=== PATIENT | male | born 1985 | race Caucasian/White ===

== ENCOUNTER 2016-11-08 14:04 | Emergency (ER) | payer OTHER ==
[2016-11-08 14:22] VITALS: BP 150/77; PULSE 53; RESP 18
[2016-11-08 14:33] VITALS: TEMP 98.9
--- NOTE | 2016-11-08 14:50 | ED ---
ENT HPI - General Chief complaint: Dental/Oral Stated complaint: Dental Pain Time Seen by Provider: 11/08/16 14:23 Source: patient, RN notes reviewed Mode of arrival: ambulatory Limitations: no limitations - History of Present Illness Initial comments: 31-year-old male presents to the emergency Department chief complaint of right- sided dental pain. Patient states that it's the last 2 days. Patient admits to history of dental problems. Patient states any difficulty opening closing the mouth. Patient denies any pain radiates the neck. Patient denies any nausea vomiting fever chills with this. Patient states he was concerned due to his symptoms he thought that he should be evaluated.Patient denies any recent fever, chills, shortness of breath, chest pain, back pain, abdominal pain, nausea vomiting, numbness or tingling, dysuria or hematuria, constipation or diarrhea, headaches or visual changes, or any other current symptoms. - Related Data Home Medications Medication Instructions Recorded Confirmed No Known Home Medications [No 11/08/16 11/08/16 Known Home Medications] Allergies Allergy/AdvReac Type Severity Reaction Status Date / Time No Known Allergies Allergy Verified 11/08/16 14:22 Review of Systems ROS Statement: Those systems with pertinent positive or pertinent negative responses have been documented in the HPI. ROS Other: All systems not noted in ROS Statement are negative. Past Medical History Past Medical History: No Reported History History of Any Multi-Drug Resistant Organisms: None Reported Past Surgical History: Orthopedic Surgery Past Psychological History: No Psychological Hx Reported Smoking Status: Never smoker Past Alcohol Use History: Occasional Past Drug Use History: Marijuana General Exam Limitations: no limitations General appearance: alert, in no apparent distress Head exam: Present: atraumatic, normocephalic, normal inspection ENT exam: Present: normal exam, mucous membranes moist, other (Diffuse dental caries, no dental abscess at this time visualized.) Neck exam: Present: normal inspection. Absent: tenderness, meningismus, lymphadenopathy Respiratory exam: Present: normal lung sounds bilaterally. Absent: respiratory distress, wheezes, rales, rhonchi, stridor Cardiovascular Exam: Present: regular rate, normal rhythm, normal heart sounds. Absent: systolic murmur, diastolic murmur, rubs, gallop, clicks Neurological exam: Present: alert, oriented X3 Psychiatric exam: Present: normal affect, normal mood Skin exam: Present: warm, dry, intact, normal color. Absent: rash Course Vital Signs 11/08/16 11/08/16 14:20 14:29 Temperature 99.3 F 98.9 F Pulse Rate 53 L Respiratory 18 Rate Blood Pressure 150/77 O2 Sat by Pulse 99 Oximetry Medical Decision Making - Medical Decision Making 31-year-old male presents for right-sided dental pain. At this time the patient does appear to have dental caries. This time we discussed outpatient antibiotics for his symptoms. We did discuss follow-up with the dentist and return parameters. Patient stated that he understood. Plan. He will be discharged. Disposition Clinical Impression: Dental caries Disposition: HOME SELF-CARE Condition: Stable Instructions: Dental Caries (ED) Additional Instructions: Please use medication as discussed. Please follow up with family doctor if symptoms have not improved over the next two days. Please return to the emergency room if your symptoms increase or worsen or for any other concerns. [facility] [id number] [address] [phone] (existing clients only) For new clients: [phone] 1st consult: $50 (includes Xrays) Usually 30% less then private dentist for visits after. [employer] Have to pay $50 for Xrays anmd rest is covered. [phone] Referrals: Gerri Cline MD [REFERRING] - 1-2 days Time of Disposition: 14:49
== END 2016-11-08 15:00 | disposition home or self-care (01) ==
LOC: EC 14:04
DX: K02.9 Dental caries, unspecified (principal)
CPT/HCPCS: 99282

== ENCOUNTER 2018-03-18 09:18 | Emergency (ER) | payer BC ==
[2018-03-18 09:21] VITALS: TEMP 98
--- NOTE | 2018-03-18 10:00 | XR ---
EXAMINATION TYPE: XR shoulder complete LT DATE OF EXAM: 03/18/2018 CLINICAL HISTORY: pain COMPARISON: NONE TECHNIQUE: Three views of the left shoulder are obtained. FINDINGS: There is no acute fracture/dislocation evident. The acromioclavicular and glenohumeral kath int spaces appear within normal limits. The visualized ribs are intact and unremarkable. Changes of rotator cuff repair. IMPRESSION: 1. There is no acute fracture or dislocation. ICD 10 NO FRACTURE, INITIAL EVALUATION
--- NOTE | 2018-03-18 10:01 | ED ---
Upper Extremity HPI - General Chief Complaint: Extremity Injury, Upper Stated Complaint: Lt Shoulder Injury Time Seen by Provider: 03/18/18 09:23 Source: patient, RN notes reviewed Mode of arrival: ambulatory Limitations: no limitations - History of Present Illness Initial Comments: 32-year-old male presents emergency Department chief complaint of left arm pain. Patient states she's had surgery when he was under for rotator cuff injury. Patient states that he has a large scar and he believes he has some tacking done. Patient states that he has been waking up in he middle of the night with numbness and tingling in his arm he states that he wakes up he moves it goes away. Patient states it's more diffuse rather than just in his hand. Denies any associated weakness. He states she's has pain especially shoulder height movement. Patient states that he had no new trauma denies any chest pain or shortness of breath. - Related Data Previous Rx's Medication Instructions Recorded Penicillin V Potassium [Pen Vee K] 500 mg PO TID #40 tab 11/08/16 predniSONE 50 mg PO DAILY #5 tab 03/18/18 Allergies Allergy/AdvReac Type Severity Reaction Status Date / Time No Known Allergies Allergy Verified 03/18/18 09:21 Review of Systems ROS Statement: Those systems with pertinent positive or pertinent negative responses have been documented in the HPI. ROS Other: All systems not noted in ROS Statement are negative. Past Medical History Past Medical History: No Reported History History of Any Multi-Drug Resistant Organisms: None Reported Past Surgical History: Orthopedic Surgery Past Psychological History: No Psychological Hx Reported Smoking Status: Never smoker Past Alcohol Use History: Occasional Past Drug Use History: Marijuana General Exam Limitations: no limitations General appearance: alert, in no apparent distress Head exam: Present: atraumatic, normocephalic, normal inspection Respiratory exam: Present: normal lung sounds bilaterally. Absent: respiratory distress, wheezes, rales, rhonchi, stridor Cardiovascular Exam: Present: regular rate, normal rhythm, normal heart sounds. Absent: systolic murmur, diastolic murmur, rubs, gallop, clicks Extremities exam: Present: other (Left shoulder there is anterior scar noted well healed, patient has pain above 90. [employer] Consultant strength is equal bilateral, neurovascular intact with radial pulses equal bilaterally there is no focal tenderness with palpation no erythema no warmth) Neurological exam: Present: alert, oriented X3, CN II-XII intact, reflexes normal. Absent: motor sensory deficit Course Vital Signs 03/18/18 09:18 Temperature 98.0 F Pulse Rate 68 Respiratory 16 Rate Blood Pressure 138/85 O2 Sat by Pulse 97 Oximetry Medical Decision Making - Medical Decision Making 32-year-old male presents emergency Department chief complaint of left shoulder pain. He's been waking up with intermittent paresthesias. Patient symptoms do resolve. He may have some nerve impingement. Patient will be discharged follow -up with orthopedics patient may have some underlying tendinitis. Disposition Clinical Impression: Left shoulder tendinitis, Paresthesia of left upper extremity Disposition: HOME SELF-CARE Condition: Stable Instructions: Rotator Cuff Tendinitis (ED) Additional Instructions: Please return to the Emergency Department if symptoms worsen or any other concerns. Prescriptions: predniSONE 50 mg PO DAILY #5 tab Is patient prescribed a controlled substance at d/c from ED?: No Referrals: None,Stated [Primary Care Provider] - 1-2 days Lu Quezada MD [STAFF PHYSICIAN] - 1-2 days Mitesh Murillo MD [STAFF PHYSICIAN] - 1-2 days Time of Disposition: 10:07
[2018-03-18] MEDS ORDERED: ACET/COD 300 MG/30 MG STARTER PACK 6 TAB BTL PO STA (10:06)
[2018-03-18 10:26] VITALS: BP 135/76; PULSE 77; RESP 18
== END 2018-03-18 10:26 | disposition home or self-care (01) ==
LOC: EC 09:18
DX: M75.92 Shoulder lesion, unspecified, left shoulder (principal); R20.2 Paresthesia of skin
CPT/HCPCS: 99283

== ENCOUNTER → 2018-04-07 | Outpatient (CLI) | payer BC | LOC: RADMRIMAIN 10:13 | PROVIDERS: ATTEND Internal Medicine | DX: Z53.9 Procedure and treatment not carried out, unspecified reason (principal) ==

== ENCOUNTER 2019-11-08 02:40 | Observation (INO) | payer BC, OTHER ==
[2019-11-08] MEDS ORDERED: MORPHINE SULFATE 4 MG/ML SYRINGE IV STA ×2 (03:11→05:20)
[2019-11-08] MEDS ORDERED: KETOROLAC 30 MG/ML 1 ML VIAL IVP STA (03:11)
[2019-11-08 03:54] LABS: Basophils % (A) 0 %; Eosinophils # (A) 0.3 k/uL (0-0.7); Eosinophils % (A) 3 %; HCT 44.9 % (39.0-53.0); HGB 14.9 gm/dL (13.0-17.5); Lymphocytes # (A) 2.8 k/uL (1.0-4.8); Lymphocytes % (A) 29 %; MCH 32.2 pg (25.0-35.0); MCHC 33.3 g/dL (31.0-37.0); MCV 96.8 fL (80.0-100.0); Mean Platelet Volume 6.9; Monocytes # (A) 0.5 k/uL (0-1.0); Monocytes % (A) 6 %; Neutrophils # (A) 5.8 k/uL (1.3-7.7); Neutrophils % (A) 60 %; Platelet Count 272 k/uL (150-450); RBC 4.64 m/uL (4.30-5.90); RDW 12.7 % (11.5-15.5); WBC 9.6 k/uL (3.8-10.6)
[2019-11-08 04:01] LABS: ALT 47 U/L (4-49); AST 96 U/L (17-59); African American GFR (CKD) >90 (>60 ml/min/1.73 sqM); Albumin 3.4 g/dL (3.5-5.0); Alkaline Phosphatase 52 U/L (38-126); Anion Gap 6 mmol/L; Blood Urea Nitrogen 16 mg/dL (9-20); C Reactive Protein 11.5 mg/L (<10.0); Calcium 8.6 mg/dL (8.4-10.2); Carbon Dioxide 26 mmol/L (22-30); Chloride 104 mmol/L (98-107); Glucose 91 mg/dL (74-99); Non-African American GFR(CKD) >90 (>60 ml/min/1.73 sqM); Potassium 4.3 mmol/L (3.5-5.1); Sodium 136 mmol/L (137-145); Total Bilirubin 0.4 mg/dL (0.2-1.3); Total Protein 5.5 g/dL (6.3-8.2)
[2019-11-08 04:25] LABS: Creatine Kinase MB 5.8 ng/mL (0.0-2.4); Troponin I <0.012 ng/mL (0.000-0.034)
[2019-11-08] MEDS ORDERED: NITROGLYCERIN SL TABS 0.4 MG TAB SUBLINGUAL STA (05:20)
[2019-11-08] MEDS ORDERED: ASPIRIN 81 MG PO STA (05:20)
[2019-11-08] MEDS ORDERED: LABETALOL 5 MG/ML VIAL MDV IVP STA (05:33)
--- NOTE | 2019-11-08 05:33 | ED ---
Upper Extremity HPI <Samia Posadas - Last Filed: 11/08/19 08:15> - General Source: patient Mode of arrival: ambulatory Limitations: no limitations - History of Present Illness MD Complaint: Injury to:: left, shoulder, arm -: hour(s) Other Extremity Injury: Arm: Left, Shoulder: Left Other Injuries: none Handedness: right Place: home Improves With: movement Worsens With: none Associated Symptoms: denies other symptoms <Kofi Fonseca - Last Filed: 11/08/19 23:24> - General Chief Complaint: Extremity Injury, Upper Stated Complaint: Left arm pain Time Seen by Provider: 11/08/19 03:00 - History of Present Illness Initial Comments: This patient is 34-year-old man who presents to be evaluated for left shoulder and left arm pain and numbness tingling. Patient states that the symptoms had come on last night but had resolved and then recurred tonight. He indicates the area from the trapezius down to approximately the midportion of the bicep. He states that he does have some tingling or numbness that goes down toward the fingers as well. Patient denies having any known injury. (Kofi Fonseca) - Related Data Home Medications Medication Instructions Recorded Confirmed No Known Home Medications 11/08/19 11/08/19 Allergies Allergy/AdvReac Type Severity Reaction Status Date / Time No Known Allergies Allergy Verified 11/08/19 07:13 Review of Systems ROS Other: All systems not noted in ROS Statement are negative. <Samia Posadas - Last Filed: 11/08/19 08:15> ROS Other: All systems not noted in ROS Statement are negative. Constitutional: Denies: fever, chills, weakness Respiratory: Denies: cough, dyspnea Cardiovascular: Denies: chest pain, palpitations, orthopnea, edema, syncope Gastrointestinal: Denies: abdominal pain, nausea, vomiting Genitourinary: Denies: dysuria, hematuria Musculoskeletal: Reports: as per HPI. Denies: back pain Skin: Denies: rash Neurological: Reports: paresthesias (Left arm). Denies: headache, weakness, numbness <Kofi Fonseca - Last Filed: 11/08/19 23:24> ROS Statement: Those systems with pertinent positive or pertinent negative responses have been documented in the HPI. Past Medical History Past Medical History: No Reported History History of Any Multi-Drug Resistant Organisms: None Reported Past Surgical History: Orthopedic Surgery Past Psychological History: No Psychological Hx Reported Smoking Status: Current every day smoker Past Alcohol Use History: Occasional <Kofi Fonseca - Last Filed: 11/08/19 23:24> General Exam Limitations: no limitations General appearance: alert, in no apparent distress Head exam: Present: atraumatic, normocephalic Eye exam: Present: normal appearance. Absent: scleral icterus, conjunctival injection ENT exam: Present: normal oropharynx Neck exam: Present: normal inspection Respiratory exam: Present: normal lung sounds bilaterally. Absent: respiratory distress, wheezes, rales, rhonchi, stridor Cardiovascular Exam: Present: regular rate, normal rhythm, normal heart sounds. Absent: systolic murmur, diastolic murmur, rubs, gallop GI/Abdominal exam: Present: soft. Absent: distended, tenderness, guarding, rebound, rigid, mass Extremities exam: Present: normal inspection, full ROM, normal capillary refill. Absent: tenderness Left General: Present: normal inspection Shoulder Exam: Present: normal inspection, full ROM. Absent: tenderness, swelling, abrasion, laceration, ecchymosis, deformity Upper Arm exam: Present: normal inspection, full ROM. Absent: tenderness, swelling, abrasion, laceration, ecchymosis Elbow exam: Present: normal inspection, full ROM. Absent: tenderness, swelling, abrasion Forearm Wrist exam: Present: normal inspection, full ROM. Absent: tenderness, swelling Hand Wrist exam: Present: normal inspection, full ROM. Absent: tenderness, swelling Neuro motor exam: Present: wrist extension intact, thumb opposition intact, thumb adduction intact, fingers 2-5 abduction intact Vascular: Present: normal capillary refill, radial pulse (Normal), ulnar pulse ( Normal) Back exam: Present: normal inspection, full ROM. Absent: vertebral tenderness Neurological exam: Present: alert. Absent: motor sensory deficit Skin exam: Present: warm, dry, intact, normal color. Absent: rash <Kofi Fonseca - Last Filed: 11/08/19 23:24> Course Vital Signs 11/08/19 11/08/19 11/08/19 02:43 05:20 05:25 Temperature 97.6 F Pulse Rate 67 61 80 Respiratory 18 18 24 Rate Blood Pressure 174/102 154/97 149/95 O2 Sat by Pulse 99 100 99 Oximetry 11/08/19 11/08/19 11/08/19 05:30 05:35 06:06 Temperature Pulse Rate 72 53 L 58 L Respiratory 20 16 18 Rate Blood Pressure 159/80 156/81 164/74 O2 Sat by Pulse 97 98 98 Oximetry 11/08/19 11/08/19 11/08/19 07:11 07:54 09:19 Temperature Pulse Rate 61 75 81 Respiratory 18 20 18 Rate Blood Pressure 155/88 129/85 132/78 O2 Sat by Pulse 100 99 98 Oximetry Medical Decision Making - Lab Data Result diagrams: 11/08/19 03:29 11/08/19 03:29 <Samia Posadas - Last Filed: 11/08/19 08:15> - Lab Data Result diagrams: 11/08/19 03:29 11/08/19 03:29 <Kofi Fonseca - Last Filed: 11/08/19 23:24> - Medical Decision Making Patient was signed out to me from Dr. Bee. Patient presented with left arm numbness and paresthesias. He had an abnormal EKG which was discussed with cardiology. I did review the patient's laboratory studies and imaging. Patient does have some mild aneurysmal aortic root dilation at 4 cm. Borderline ectasia ascending aortic at 3.5 cm. No evidence for aortic dissection. Patient is reevaluated and continues to complain of pain and paresthesias. Patient's was given 5 mg of Valium. EKG continues to demonstrate J-point elevation in inferior leads. Because the patient's persistent symptoms he will be admitted. Case discussed with Dr. Pennington who accepted admission. I will consult cardi ology. Patient remained in stable condition awaiting a bed (Samia Posadas) Patient is 34-year-old man here with left shoulder and arm pain. The patient does not have risk factors for coronary artery disease however the pain is not reproducible in any way. He denies any known trauma or repetitive movement type injury. He did initially have improvement and was sleeping following medication. the patient subsequently had worsening of the pain and a repeat ECG does show what appears to be increased ST segment elevation inferiorly. cleaning laborer is initially activated. The bpo specialist on-call, Dr. Pinedo did subsequently review the ECG and it does appear to be more consistent with early repolarization than STEMI. The patient did have significant relief again following medication. (Kofi Fonseca) - Lab Data Lab Results 11/08/19 11/08/19 11/08/19 Range/Units 03:29 03:29 03:29 WBC 9.6 (3.8-10.6) k/uL RBC 4.64 (4.30-5.90) m/uL Hgb 14.9 (13.0-17.5) gm/dL Hct 44.9 (39.0-53.0) % MCV 96.8 (80.0-100.0) fL MCH 32.2 (25.0-35.0) pg MCHC 33.3 (31.0-37.0) g/dL RDW 12.7 (11.5-15.5) % Plt Count 272 (150-450) k/uL Neutrophils % 60 % Lymphocytes % 29 % Monocytes % 6 % Eosinophils % 3 % Basophils % 0 % Neutrophils # 5.8 (1.3-7.7) k/uL Lymphocytes # 2.8 (1.0-4.8) k/uL Monocytes # 0.5 (0-1.0) k/uL Eosinophils # 0.3 (0-0.7) k/uL Basophils # 0.0 (0-0.2) k/uL Sodium 136 L (137-145) mmol/L Potassium 4.3 (3.5-5.1) mmol/L Chloride 104 (98-107) mmol/L Carbon Dioxide 26 (22-30) mmol/L Anion Gap 6 mmol/L BUN 16 (9-20) mg/dL Creatinine 0.92 (0.66-1.25) mg/dL Est GFR (CKD-EPI)AfAm >90 (>60 ml/min/1.73 sqM) Est GFR (CKD-EPI)NonAf >90 (>60 ml/min/1.73 sqM) Glucose 91 (74-99) mg/dL Calcium 8.6 (8.4-10.2) mg/dL Total Bilirubin 0.4 (0.2-1.3) mg/dL AST 96 H (17-59) U/L ALT 47 (4-49) U/L Alkaline Phosphatase 52 (38-126) U/L CK-MB (CK-2) 5.8 H (0.0-2.4) ng/mL Troponin I <0.012 (0.000-0.034) ng/mL C-Reactive Protein 11.5 H (<10.0) mg/L Total Protein 5.5 L (6.3-8.2) g/dL Albumin 3.4 L (3.5-5.0) g/dL 11/08/19 Range/Units 06:14 WBC (3.8-10.6) k/uL RBC (4.30-5.90) m/uL Hgb (13.0-17.5) gm/dL Hct (39.0-53.0) % MCV (80.0-100.0) fL MCH (25.0-35.0) pg MCHC (31.0-37.0) g/dL RDW (11.5-15.5) % Plt Count (150-450) k/uL Neutrophils % % Lymphocytes % % Monocytes % % Eosinophils % % Basophils % % Neutrophils # (1.3-7.7) k/uL Lymphocytes # (1.0-4.8) k/uL Monocytes # (0-1.0) k/uL Eosinophils # (0-0.7) k/uL Basophils # (0-0.2) k/uL Sodium (137-145) mmol/L Potassium (3.5-5.1) mmol/L Chloride (98-107) mmol/L Carbon Dioxide (22-30) mmol/L Anion Gap mmol/L BUN (9-20) mg/dL Creatinine (0.66-1.25) mg/dL Est GFR (CKD-EPI)AfAm (>60 ml/min/1.73 sqM) Est GFR (CKD-EPI)NonAf (>60 ml/min/1.73 sqM) Glucose (74-99) mg/dL Calcium (8.4-10.2) mg/dL Total Bilirubin (0.2-1.3) mg/dL AST (17-59) U/L ALT (4-49) U/L Alkaline Phosphatase (38-126) U/L CK-MB (CK-2) (0.0-2.4) ng/mL Troponin I <0.012 (0.000-0.034) ng/mL C-Reactive Protein (<10.0) mg/L Total Protein (6.3-8.2) g/dL Albumin (3.5-5.0) g/dL Disposition Is patient prescribed a controlled substance at d/c from ED?: No Decision to Admit Reason: Admit from EC Decision Date: 11/08/19 Decision Time: 08:03 <Samia Posadas - Last Filed: 11/08/19 08:15> Is patient prescribed a controlled substance at d/c from ED?: No <Kofi Fonseca - Last Filed: 11/08/19 23:24> Clinical Impression: Left arm pain, ST segment changes on electrocardiogram, Arm paresthesia, left Disposition: ADMITTED IP TO THIS [facility] Condition: Stable
[2019-11-08] MEDS ORDERED: HYDROmorphone 1 MG/ML 1 ML SYRINGE IVP STA (06:55)
--- NOTE | 2019-11-08 07:30 | CT ---
EXAMINATION TYPE: CT angio neck DATE OF EXAM: 11/08/2019 COMPARISON: None HISTORY: 34-year-old male left arm pain and chest pain TECHNIQUE: Contiguous axial scanning of the neck performed with IV Contrast, patient injected with 65 mL of Isovue 370. Coronal/sagittal MIP reconstructions performed. 3-D reconstructions generated on a dedicated independent workstation. CT DLP: 702.2 mGycm Automated exposure control for dose reduction was used. FINDINGS: Bovine configuration to the aortic arch. Right common and right internal carotid arteries are patent. The common and internal carotid arteries are patent. The vertebral arteries are codominant and patent throughout its course. There may be some generalized anasarca change. Reversal of the normal cervical lordosis with mild degenerative disc disease lower cervical spine. IMPRESSION: 1. PATENT CAROTID AND VERTEBRAL ARTERIES OF THE NECK. BOVINE CONFIGURATION TO THE AORTIC ARCH INCIDEN TALLY NOTED. NO DISSECTION OR ARTERIAL STENOSIS. 2. THERE SEEMS TO BE SOME GENERALIZED ANASARCA CHANGE. CLINICALLY CORRELATE.
--- NOTE | 2019-11-08 07:37 | CT ---
EXAMINATION TYPE: CT angio chest DATE OF EXAM: 11/08/2019 COMPARISON: None HISTORY: 34-year-old male with chest pain TECHNIQUE: Contiguous axial scanning of the chest performed with IV Contrast, patient injected with 7 0 mL of Isovue 370. Coronal/sagittal MIP reconstructions performed. CT DLP: 509 mGycm Automated exposure control for dose reduction was used. FINDINGS: Heart upper limits of normal in size without pericardial effusion. No reflux of contrast into the hep atic vein. Root of the aorta measures mildly aneurysmal at 4.0 cm. Ascending aorta portal and ectatic at 3.5 cm. Bovine configuration to the aortic arch. No aortic dissection. Some residual thymic tissue in the anterior mediastinum. Mild bilateral gynecomastia. No thoracic lym phadenopathy identified by CT size criteria. There is seems to be some mild generalized anasarca changes. Suboptimal opacification of the pulmonary arterial system with attenuation of only 182 [place] uni ts. No large central definite lobar branch pulmonary embolus. Many of the segmental and more distal a rterial branches are nondiagnostic and emboli in these locations cannot be excluded on the basis of t his exam. Mild diffuse bronchial wall thickening. Mild dependent atelectasis. Additional strandy bibasilar atel ectasis. 4 mm subpleural pulmonary nodule peripheral left base of questionable clinical significance. Visualized upper abdomen shows no gross abnormality. Bones: Mild to moderate degenerative disc disease lower thoracic spine. No osseous destructive proces s. IMPRESSION: 1. CORRELATE THERE SEEMS TO BE SOME MILD GENERALIZED ANASARCA CHANGE. 2. SUBOPTIMAL DEGREE OF OPACIFICATION OF THE PULMONARY ARTERIAL SYSTEM. NO LARGE CENTRAL OR DEFINITE LOBAR BRANCH EMBOLUS. MANY OF THE SEGMENTAL AND MORE DISTAL ARTERIAL BRANCHES ARE NONDIAGNOSTIC AND E MBOLI IN THESE LOCATIONS CANNOT BE EXCLUDED ON THE BASIS OF THIS EXAM. 3. MILDLY ANEURYSMAL AORTIC ROOT AT 4.0 CM AND BORDERLINE ECTASIA ASCENDING AORTA AT 3.5 CM. NO EVIDE NCE FOR AORTIC DISSECTION. 4. MILD DIFFUSE BRONCHIAL WALL THICKENING MAY BE SEEN WITH BRONCHITIS OR CHRONIC ASTHMA.
[2019-11-08] MEDS ORDERED: DIAZEPAM 5 MG/ML 2 ML INJ IVP STA (07:44)
[2019-11-08] MEDS ORDERED: NALOXONE 0.4 MG/ML 1 ML VIAL IV PRN (08:06)
[2019-11-08] MEDS: KETOROLAC 30 MG/ML 1 ML VIAL IVP PRN ×2 (13:55→21:05)
--- NOTE | 2019-11-08 15:22 | HP ---
HISTORY AND PHYSICAL This patient is a 34-year-old white male with left arm and left shoulder pain, numbness, tingling. Symptoms came last night but resolved, then recurred tonight. Mainly on the trapezius muscle. Per the ER physician in the biceps, tingling, numbness toward the fingers. He takes no medicines at home. ALLERGIES ARE NEGATIVE. Fourteen-point review of systems is negative. Past surgical history is orthopedic surgery. Current everyday smoker. Occasional alcohol. Temperature 97.6, pulse 60s to 90s, blood pressure 140s to 170s over 95 to 102, O2 99% to 100%. CARDIOVASCULAR: S1, S2. LUNGS: Clear. GI: Soft. HEMATOLOGY: Negative Homans. PSYCH: Fair mood and affect. OPHTHALMOLOGIC: Pupils equal, round, reactive to light and accommodation. Hemoglobin is 14.2, white count 9.6. Abnormal EKG. Possible hypertension acceleration and possible mild aneurysm aortic root dilation. Will have the operating room tech see him and possibly do a stress test. Wait for cardiology consult. Hypertension control will be needed on this patient. Risk factor modification will be discussed with the patient. MMODL / IJN: [id number] /
[2019-11-08] MEDS: GABAPENTIN 300 MG CAP PO SCH ×2 (16:41→21:06)
[2019-11-08] MEDS: HYDROmorphone 1 MG/ML 1 ML SYRINGE IVP PRN ×2 (16:46→23:06)
[2019-11-08] MEDS: LORazepam 2 MG/ML INJ IV PRN ×2 (16:48→21:07)
[2019-11-08] MEDS: methylPREDNISolone SOD SUCCI 125 MG/2 ML VIAL IV SCH ×2 (16:50→23:06)
--- NOTE | 2019-11-08 19:18 | P.CNPUL ---
History of Present Illness Consult date: 11/08/19 Reason for consult: abnormal CXR/CT Chief complaint: Left arm pain History of present illness: This is a 34-year-old male with intermittent history of smoking patient has been admitted to hospital with left arm pain and shoulder pain and neck pain, patient is currently getting workup and evaluation, he described pain to be present for long period time, roughly estimated about 15 years or so, currently pain is slightly better, he also has a feeling of tingling sensation along with numbness in the finger, he underwent CT of the neck as well as the chest, no significant stenosis of carotid or vertebral vasculature have been noted, computed tomography scan of the chest revealed mild aneurysmal dilatation of aorta about 4 cm at the root level ascending level is slightly elevated to of 3.5 cm, bovine configuration has been noted, some residual thymic tissue noted in the anterior mediastinum no thoracic aneurysm identified overall no significant large central pulmonary embolism was noted, some dependent atelectasis identified, 4 mm subpleural nodule of left base is seen Review of Systems All systems: negative Past Medical History Past Medical History: No Reported History History of Any Multi-Drug Resistant Organisms: None Reported Past Surgical History: Orthopedic Surgery Past Anesthesia/Blood Transfusion Reactions: No Reported Reaction Past Psychological History: No Psychological Hx Reported Smoking Status: Never smoker Past Alcohol Use History: None Reported, Occasional Past Drug Use History: Marijuana Medications and Allergies Home Medications Medication Instructions Recorded Confirmed Type No Known Home Medications 11/08/19 11/08/19 History Allergies Allergy/AdvReac Type Severity Reaction Status Date / Time No Known Allergies Allergy Verified 11/08/19 07:13 Physical Exam Vitals: Vital Signs Temp Pulse Pulse Resp BP BP Pulse Ox 11/08/19 17:15 98.2 F 64 16 138/72 94 L 11/08/19 14:32 22 11/08/19 13:41 22 156/68 99 11/08/19 09:19 81 18 132/78 98 11/08/19 07:54 75 20 129/85 99 11/08/19 07:11 61 18 155/88 100 11/08/19 06:06 58 L 18 164/74 98 11/08/19 05:35 53 L 16 156/81 98 11/08/19 05:30 72 20 159/80 97 11/08/19 05:25 80 24 149/95 99 11/08/19 05:20 61 18 154/97 100 11/08/19 02:43 97.6 F 67 18 174/102 99 Intake and Output 11/08/19 11/08/19 11/08/19 06:59 14:59 22:59 Intake Total 600 Balance 600 Intake: Oral 600 Other: # Voids 2 Weight 97.522 kg 97.522 kg - Constitutional General appearance: average body habitus, cooperative, disheveled - EENT Eyes: EOMI, PERRLA Ears: bilateral: normal - Neck Neck: normal ROM Carotids: bilateral: upstroke normal Thyroid: bilateral: normal size - Respiratory Respiratory: bilateral: CTA - Cardiovascular Rhythm: regular Heart sounds: normal: S1, S2 - Gastrointestinal General gastrointestinal: decreased bowel sounds, soft - Neurologic Neurologic: CNII-XII intact - Musculoskeletal Musculoskeletal: gait normal, generalized weakness, strength equal bilaterally - Psychiatric Psychiatric: A&O x's 3, appropriate affect, intact judgment & insight Results - Laboratory Findings CBC and BMP: 11/08/19 03:29 11/08/19 03:29 Abnormal lab findings: Abnormal Labs 11/08/19 11/08/19 03:29 03:29 Sodium 136 L AST 96 H CK-MB (CK-2) 5.8 H C-Reactive Protein 11.5 H Total Protein 5.5 L Albumin 3.4 L - Diagnostic Findings CT scan - chest: report reviewed, image reviewed Assessment and Plan Assessment: Left lower lobe 4 mm pulmonary nodule 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
[2019-11-08] MEDS: NICOTINE 21MG/24HR PATCH TRANSDERM SCH (21:07)
--- NOTE | 2019-11-08 23:15 | CT ---
EXAMINATION TYPE: Neck pain. Left side neuritis. DATE OF EXAM: 11/08/2019 COMPARISON: None CT scan cervical spine HISTORY: Neck pain. Neuritis. CT DLP: mGycm Automated exposure control for dose reduction was used. There is mild straightening of the cervical spine. There is mild spurring of the endplates at C5-6 an d C6-7. Facet joints are intact. The skull base is intact. Prevertebral soft tissues are within valeriy l limits. There is uncovertebral mild spur formation at C5-6 and C6-7. There is probably some neural foraminal stenosis bilaterally at these 2 levels. I see no focal bone destruction. Posterior elements are intact. IMPRESSION: Spondylotic changes in the lower cervical spine. This is moderate arthritic change in this relatively young patient. There is uncovertebral spurring and mild neural foraminal impingement at C5-6 and C6- 7.
[2019-11-09 00:40] VITALS: RESP 18
[2019-11-09 05:14] VITALS: TEMP 97.9
[2019-11-09] MEDS: HYDROmorphone 1 MG/ML 1 ML SYRINGE IVP PRN ×2 (05:45→11:06)
[2019-11-09 06:54] LABS: Basophils % (A) 0 %; Eosinophils # (A) 0.1 k/uL (0-0.7); Eosinophils % (A) 1 %; HCT 50.1 % (39.0-53.0); HGB 15.7 gm/dL (13.0-17.5); Lymphocytes # (A) 0.6 k/uL (1.0-4.8); Lymphocytes % (A) 6 %; MCH 30.6 pg (25.0-35.0); MCHC 31.4 g/dL (31.0-37.0); MCV 97.4 fL (80.0-100.0); Mean Platelet Volume 6.7; Monocytes # (A) 0.1 k/uL (0-1.0); Monocytes % (A) 1 %; Neutrophils # (A) 9.7 k/uL (1.3-7.7); Neutrophils % (A) 92 %; Platelet Count 289 k/uL (150-450); RBC 5.14 m/uL (4.30-5.90); RDW 12.7 % (11.5-15.5); WBC 10.6 k/uL (3.8-10.6)
[2019-11-09 07:19] LABS: African American GFR (CKD) >90 (>60 ml/min/1.73 sqM); Anion Gap 6 mmol/L; Blood Urea Nitrogen 12 mg/dL (9-20); Calcium 8.9 mg/dL (8.4-10.2); Carbon Dioxide 27 mmol/L (22-30); Chloride 104 mmol/L (98-107); Glucose 147 mg/dL (74-99); Non-African American GFR(CKD) >90 (>60 ml/min/1.73 sqM); Potassium 5.5 mmol/L (3.5-5.1); Sodium 137 mmol/L (137-145)
--- NOTE | 2019-11-09 08:41 | P.PN ---
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 size Left arm pain and shoulder pain appears to be related to radiculopathy early evidence of COPD-like changes 11/09/2019, patient seen and evaluated examined during the rounds labs reviewed medications reviewed care plan discussed, respiratory status remains stable no cough shortness of breath is present, patient getting therapy for left shoulder pain and arm pain with neck pain, computed tomography scan finding have been reviewed with the patient at length This is a 34-year-old male with intermittent history of smoking patient has been admitted to hospital with left arm pain and shoulder pain and neck pain, patient is currently getting workup and evaluation, he described pain to be present for long period time, roughly estimated about 15 years or so, currently pain is s lightly better, he also has a feeling of tingling sensation along with numbness in the finger, he underwent CT of the neck as well as the chest, no significant stenosis of carotid or vertebral vasculature have been noted, computed tomography scan of the chest revealed mild aneurysmal dilatation of aorta about 4 cm at the root level ascending level is slightly elevated to of 3.5 cm, bovine configuration has been noted, some residual thymic tissue noted in the anterior mediastinum no thoracic aneurysm identified overall no significant large central pulmonary embolism was noted, some dependent atelectasis identified, 4 mm subpleural nodule of left base is seen Objective - Vital Signs Vital signs: Vital Signs Temp 97.9 F 11/09/19 05:05 Pulse 68 11/09/19 05:05 Resp 18 11/09/19 05:05 BP 149/75 11/09/19 05:05 Pulse Ox 99 11/09/19 05:05 Intake & Output 11/08/19 11/09/19 11/09/19 18:59 06:59 18:59 Intake Total 600 Balance 600 Weight 97.522 kg Intake: Oral 600 Other: Voiding Method Toilet # Voids 2 1 - Exam - Constitutional General appearance: Very muscular body habitus, cooperative, disheveled - EENT Eyes: EOMI, PERRLA Ears: bilateral: normal - Neck Neck: normal ROM Carotids: bilateral: upstroke normal Thyroid: bilateral: normal size - Respiratory Respiratory: bilateral: CTA - Cardiovascular Rhythm: regular Heart sounds: normal: S1, S2 - Gastrointestinal General gastrointestinal: decreased bowel sounds, soft - Neurologic Neurologic: CNII-XII intact - Musculoskeletal Musculoskeletal: gait normal, generalized weakness, strength equal bilaterally - Psychiatric Psychiatric: A&O x's 3, appropriate affect, intact judgment & insight - Labs CBC & Chem 7: 11/09/19 06:41 11/09/19 06:41 Labs: Abnormal Lab Results - Last 24 Hours (Table) 11/09/19 11/09/19 Range/Units 06:41 06:41 Neutrophils # 9.7 H (1.3-7.7) k/uL Lymphocytes # 0.6 L (1.0-4.8) k/uL Potassium 5.5 H (3.5-5.1) mmol/L Glucose 147 H (74-99) mg/dL Assessment and Plan Assessment: Left lower lobe 4 mm pulmonary nodule 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
[2019-11-09] MEDS: methylPREDNISolone SOD SUCCI 125 MG/2 ML VIAL IV SCH ×2 (08:47→15:17)
[2019-11-09] MEDS: NICOTINE 21MG/24HR PATCH TRANSDERM SCH (08:48)
[2019-11-09] MEDS: GABAPENTIN 300 MG CAP PO SCH ×2 (08:48→15:17)
[2019-11-09] MEDS: KETOROLAC 30 MG/ML 1 ML VIAL IVP PRN ×2 (08:57→15:17)
[2019-11-09 10:06] VITALS: BP 125/77
--- NOTE | 2019-11-09 12:55 | P.CRDCN ---
History of Present Illness Consult date: 11/09/19 Reason for Consult (text): Dilated aortic root, abnormal EKG History of present illness: The patient is a 34-year-old male with past medical history of current every day smoker, who presented to the emergency room with new onset of shoulder dis comfort and left arm paresthesias. The patient states this had been going on and off since the beginning of the week, however when the pain became persistent he proceeded to the emergency room. Initial EKG showed ST changes in the inferior leads. EKG was reviewed with Dr. ASHLY Pinedo, the on-call in [facility], who indicated that the changes were more consistent with early repolarization. Troponins were negative 3. Mildly elevated CRP at 11.5 and CK-MB at 5.8. Electrolytes, kidney, and liver function unremarkable. CTA of the neck was negative for acute process. CTA of the chest found a dilated aortic root at 4.0 cm which is mildly aneurysmal, as well as the ascending aortic diameter of 3.5 cm. He was also noted to have evidence of early COPD. The patient states he does have a very active job, where he lifts heavy objects. The patient states he also exercises and lifts weights on a regular basis. PAST MEDICAL HISTORY: Orthopedic surgery, current every day smoker REVIEW OF SYSTEMS: No fever or chills. No cough or expectoration. No diaphoresis. Patient denies headache, dizziness, blurred vision, double vision. Patient denies any stomach discomfort. No nausea, vomiting. No hematochezia. No hematemesis. Denies any black stools or blood in his stools. Denies dysuria or hematuria. Positive for left arm pain. No chest discomfort. No shortness of b reath. PHYSICAL EXAMINATION: This is a 34-year-old male in mild distress at the time of my examination. He adjusted himself in the bed and is experiencing sharp pain in his left arm. HEENT: Head is atraumatic, normocephalic. Pupils are equal, round. Sclerae anicteric. Conjunctivae are clear. Mucous membranes of the mouth are moist. Neck is supple. There is no jugular venous distention. No carotid bruit is heard. CHEST EXAMINATION: Lungs are clear to auscultation. No chest wall tenderness is noted on palpation or with deep breathing. HEART EXAMINATION: Heart regular rate and rhythm. S1, S2 heard. No murmurs, gallops or rub. ABDOMEN: Soft, nontender. Bowel sounds are heard. No organomegaly noted. EXTREMITIES: 2+ peripheral pulses with no evidence of peripheral edema and no calf tenderness noted. NEUROLOGIC EXAMINATION: Patient is awake, alert and oriented x3. LABORATORY DATA: WBC 10.6, hemoglobin 15.7, hematocrit 50.1, platelet 289, sodium 137, potassium 5.5, BUN 12, creatinine 0.88, AST 96, ALT 47, CK-MB 5.8, CRP 11.5, troponins negative 3 Vitals: Blood pressure 125/77, respiratory rate 18, SpO2 97 on room air, heart rate 80 FINAL ASSESSMENT AND PLAN: #1 left arm paresthesias, likely radiculopathic #2 enlarged aortic root #3 abnormal EKG, early repolarization #4 current smoker #5 elevated CRP and CK-MB, likely related to exercise PLAN: Continue to monitor for hypertension, patient was educated on the importance of her heart healthy diet and regular exercise. Echocardiogram and stress testing to be performed outpatient. No additional recommendations at this time. Past Medical History Past Medical History: No Reported History History of Any Multi-Drug Resistant Organisms: None Reported Past Surgical History: Orthopedic Surgery Past Anesthesia/Blood Transfusion Reactions: No Reported Reaction Past Psychological History: No Psychological Hx Reported Smoking Status: Current every day smoker Past Alcohol Use History: Occasional Medications and Allergies Home Medications Medication Instructions Recorded Confirmed Type methylPREDNISolone Dose Pack 4 mg PO DIRECTED #21 package 11/09/19 Rx [Medrol Dose Pack] traMADol HCL [Ultram] 50 mg PO Q6HR PRN 3 Days #12 tab 11/09/19 Rx Allergies Allergy/AdvReac Type Severity Reaction Status Date / Time No Known Allergies Allergy Verified 11/08/19 07:13 Physical Exam Vitals: Vital Signs Temp Pulse Resp BP Pulse Ox 11/09/19 09:00 97.9 F 80 18 125/77 97 11/09/19 05:05 97.9 F 68 18 149/75 99 11/08/19 19:30 98 F 67 18 150/92 98 11/08/19 17:15 98.2 F 64 16 138/72 94 L 11/08/19 14:32 22 11/08/19 13:41 22 156/68 99 Intake and Output 11/08/19 11/09/19 11/09/19 22:59 06:59 14:59 Intake Total 600 940 Balance 600 940 Intake: Oral 600 940 Other: Voiding Method Toilet Toilet Toilet # Voids 1 1 Results 11/09/19 06:41 11/09/19 06:41 CBC 11/09/19 Range/Units 06:41 WBC 10.6 (3.8-10.6) k/uL RBC 5.14 (4.30-5.90) m/uL Hgb 15.7 (13.0-17.5) gm/dL Hct 50.1 (39.0-53.0) % Plt Count 289 (150-450) k/uL Comprehensive Metabolic Panel 11/09/19 Range/Units 06:41 Sodium 137 (137-145) mmol/L Potassium 5.5 H (3.5-5.1) mmol/L Chloride 104 (98-107) mmol/L Carbon Dioxide 27 (22-30) mmol/L BUN 12 (9-20) mg/dL Creatinine 0.88 (0.66-1.25) mg/dL Glucose 147 H (74-99) mg/dL Calcium 8.9 (8.4-10.2) mg/dL Current Medications Generic Name Dose Route Start Last Admin Trade Name Freq PRN Reason Stop Dose Admin Gabapentin 300 mg 11/08/19 16:30 11/09/19 08:48 Neurontin PO 300 mg TID MORENO Administration Hydromorphone HCl 1 mg 11/08/19 16:19 11/09/19 11:06 Dilaudid IVP 1 mg Q4HR PRN Administration Pain Ketorolac Tromethamine 30 mg 11/08/19 08:06 11/09/19 08:57 Toradol IVP 11/13/19 08:07 30 mg Q6HR PRN Administration Moderate Pain Lorazepam 1 mg 11/08/19 16:17 11/08/19 21:07 Ativan IV 1 mg Q4HR PRN Administration Anxiety Methylprednisolone Sodium Succinate 60 mg 11/08/19 16:30 11/09/19 08:47 Solu-Medrol IV 60 mg Q8HR MORENO Administration Naloxone HCl 0.2 mg 11/08/19 08:06 Narcan IV Q2M PRN Opioid Reversal Nicotine 1 patch 11/08/19 20:30 11/09/19 08:48 Habitrol 21mg/24hr Patch TRANSDERM 1 patch DAILY MORENO Administration Intake and Output 11/08/19 11/09/19 11/09/19 22:59 06:59 14:59 Intake Total 600 940 Balance 600 940 Intake: Oral 600 940 Other: Voiding Method Toilet Toilet Toilet # Voids 1 1 11/09/19 06:41 11/09/19 06:41
[2019-11-09] MEDS: LORazepam 2 MG/ML INJ IV PRN (15:19)
[2019-11-09 15:49] VITALS: PULSE 94
[2019-11-09 16:54] LABS: Cholesterol 125 mg/dL (<200); HDL Cholesterol 34 mg/dL (40-60); LDL Cholesterol,Calculated 80 mg/dL (0-99); Triglycerides 53 mg/dL (<150)
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
--- NOTE | 2019-11-11 10:42 | P.DS ---
Providers Date of admission: 11/08/19 08:06 Expected date of discharge: 11/09/19 Attending physician: Zachary Paredes Consults: 11/08/19 08:09 Consult Physician Urgent Consulting Provider: [facility] Consult Reason/Comments: acute left arm pain/paresthesias, abn ekg, acc htn Do you want consulting provider notified?: Yes 11/08/19 13:31 Consult Physician Routine Consulting Provider: Carlos Aly Consult Reason/Comments: abnormal ct chest Do you want consulting provider notified?: Yes 11/08/19 16:21 Consult Physician Urgent Consulting Provider: Dionisio Sequeira Consult Reason/Comments: neuritis left arm Do you want consulting provider notified?: Yes Primary care physician: Stated None Hospital Course: Final diagnosis Possible hypertensive acceleration with possible mild aneurysm aortic root dilation Hypertension, uncontrolled Left arm and shoulder numbness and tingling with impingement noted of the C5/6, likely radiculopathy Elevated CRP and CK-MB most likely related by exercise induction Discharge disposition Patient is being discharged in a stable condition with guarded prognosis to home. Patient will follow-up with Dr. Paredes upon discharge. Patient also instructed to follow up with neurology in the outpatient setting. Total time taken is 35 minutes. History of present illness This is an 34-year-old male who was recently admitted with left arm and left shoulder pain with some numbness and tingling and was being closely monitored. Patient was seen and evaluated by neurology recommending outpatient neurology follow-up. Patient was noted to have a C5 to 6 impingement. Patient was also evaluated by pulmonary due to a nodule found on x-ray and will follow-up outpatient. Patient will also follow-up with cardiology for an outpatient stress test. Patient has not had a primary care provider and resources were provided and patient needs to establish in the outpatient setting. Patient verbalized understanding. Currently no reports of chest pain, shortness of breath, or palpitations. Patient is afebrile. No reports of nausea or vomiting and patient is tolerating diet. On exam vital signs are stable. Temp is 97.9F, pulse is 80, respirations are 18, blood pressure is 125/77, oxygen saturation is 97% on room air. Cardio S1, S2 are muffled. Respiratory shows diminished breath sounds at the bases with no wheezing or rhonchi noted. Abdomen is soft and nontender. Nervous system shows no focal deficits. Please refer to medication reconciliation sheet for a list of medications. Patient Condition at Discharge: Stable Plan - Discharge Summary New Discharge Prescriptions: New methylPREDNISolone Dose Pack [Medrol Dose Pack] 4 mg PO DIRECTED #21 package traMADol HCL [Ultram] 50 mg PO Q6HR PRN 3 Days #12 tab PRN Reason: Pain Discharge Medication List methylPREDNISolone Dose Pack [Medrol Dose Pack] 4 mg PO DIRECTED #21 package 11/09/19 [Rx] traMADol HCL [Ultram] 50 mg PO Q6HR PRN 3 Days #12 tab 11/09/19 [Rx] Follow up Appointment(s)/Referral(s): Memo Howell MD [STAFF PHYSICIAN] - 2 Weeks (follow up for aotric root aneurysm) Zachary Paredes MD [STAFF PHYSICIAN] - 1-2 Days (post hospital follow up for primary care physician) Harvey Ye MD [Medical Doctor] - 1 Week (nerve pain/ numbness of left arm) Carlos Aly MD [STAFF PHYSICIAN] - 1 Week (for lung nodule) Patient Instructions/Handouts: Paresthesia (GEN), Arm Pain (ED) Activity/Diet/Wound Care/Special Instructions: activity Limited until follow-up Continue with steroid Dosepak Follow-up with primary care provider assigned to Follow-up with neurology in the outpatient setting Follow-up with pulmonary in the outpatient setting Discharge Disposition: HOME SELF-CARE
== END 2019-11-09 16:55 | disposition home or self-care (01) ==
LOC: EC 02:40 → 3NCARDOBS 08:06
PROVIDERS: ADMIT Family Medicine; ATTEND Family Medicine
DX: M79.602 Pain in left arm (principal); R20.2 Paresthesia of skin; R93.1 Abnormal findings on diagnostic imaging of heart and coronary circulation; R20.0 Anesthesia of skin; I10 Essential (primary) hypertension; R74.8 Abnormal levels of other serum enzymes; R79.82 Elevated C-reactive protein (CRP); F17.200 Nicotine dependence, unspecified, uncomplicated; I71.9 Aortic aneurysm of unspecified site, without rupture; J98.11 Atelectasis; R91.1 Solitary pulmonary nodule; Z87.891 Personal history of nicotine dependence
CPT/HCPCS: 96375 ×2; 96376 ×3; 96374; 99285; 36415; 93005; 80061; 80053; 80048; 82553; 84484; 85025 ×2; 86140; 72125; 70498; 71275; G0378 ×2; S4990 ×2; J2060 ×2; J2270; J2930 ×2; J3360; J1885 ×2; J1170 ×2; Q9967 ×2

== ENCOUNTER 2021-01-15 19:32 | Inpatient (IN) | payer OTHER ==
[2021-01-15] MEDS: NALOXONE 0.4 MG/ML 1 ML VIAL IVP STA ×2 (19:47→19:49)
--- NOTE | 2021-01-15 19:53 | ED ---
General Adult HPI - General Chief complaint: Overdose Stated complaint: Overdose Time Seen by Provider: 01/15/21 19:40 Source: patient Mode of arrival: ambulatory Limitations: no limitations - History of Present Illness Initial comments: Dictation was produced using [employer] dictation software. please excuse any grammatical, word or spelling errors. Chief Complaint: 35-year-old male with unknown medical history presents with heroin overdose History of Present Illness: Patient's 35-year-old male he was brought to us by EMS. Patient was allegedly unresponsive. He does admit to having taken large amounts of heroin. Prior to EMS arrival bystanders were performing CPR. Some clear patient was pulseless or not. EMS arrived on scene and provided patient with 4 mg total of Narcan administration. Patient became awake. Patient states that his bilateral shoulder pain. States that he relapsed with heroin. Patient not sure if his heroin was laced with other substances. The ROS documented in this emergency department record has been reviewed and confirmed by me. Those systems with pertinent positive or negative responses h ave been documented in the HPI. All other systems are other negative and/or noncontributory. PHYSICAL EXAM: General Impression: Alert and oriented x3, not in acute distress, pale, pinpoint pupils, sinus respirations, lethargic HEENT: Normocephalic atraumatic, extra-ocular movements intact, pupils equal and reactive to light bilaterally, mucous membranes moist. Cardiovascular: Heart regular rate and rhythm Chest: Able to complete full sentences, no retractions, no tachypnea Abdomen: abdomen soft, non-tender, non-distended, no organomegaly Musculoskeletal: Pulses present and equal in all extremities, no peripheral edema Motor: no focal deficits noted Neurological: CN II-XII grossly intact, no focal motor or sensory deficits noted Skin: Diaphoretic ED course: 35-year-old male presents emergency department for heroin overdose. He was allegedly given 4 mg of IV Narcan to he became responsive. He was apneic. Patient's clinical presentation consistent with opiate toxidrome. He still does have pinpoint pupils. Patient given another 2 more grams of IV Narcan started on Narcan infusion. Vital signs upon arrival shows heart rate of 114, respiratory 26, blood pressure 99/55, 80% on 2 L nasal cannula. Patient placed on nonrebreather with improvement to 94. Patient still however appears dyspneic. Patient placed on BiPAP. Chest x-ray shows an is concerning for noncardiogenic pulmonary edema. EKG interpretation: Ventricular rate 106, sinus tachycardia, NV interval 166, QRS 96, QTC 417. No NV prolongation, no QTC prolongation, no ST or T-wave changes noted. Overall, this EKG is unremarkable Laboratory evaluation obtained. CBC metabolic panel is unremarkable. Salicylate Tylenol levels negative. Chest x-ray shows bilateral pulmonary edema worse in the right side. Patient evaluated at bedside at 8:53 PM found to be stable medical condition. He is tolerating BiPAP and has improvement in his oxygenation. He appears to be comfortable. Given that patient is on a Narcan infusion and BiPAP requirements patient be admitted to ICU. Case discussed with Dr. Arshad is willing to accept patient's care to ICU. Patient be admitted to [facility] hospitalist group. - Related Data Home Medications Medication Instructions Recorded Confirmed No Known Home Medications 01/15/21 01/15/21 Allergies Allergy/AdvReac Type Severity Reaction Status Date / Time No Known Allergies Allergy Verified 01/15/21 20:24 Review of Systems ROS Statement: Those systems with pertinent positive or pertinent negative responses have been documented in the HPI. ROS Other: All systems not noted in ROS Statement are negative. Past Medical History Past Medical History: No Reported History History of Any Multi-Drug Resistant Organisms: None Reported Past Surgical History: Orthopedic Surgery Past Anesthesia/Blood Transfusion Reactions: No Reported Reaction Past Psychological History: No Psychological Hx Reported Smoking Status: Current every day smoker Past Alcohol Use History: Occasional Past Drug Use History: Heroin General Exam Limitations: no limitations Course Vital Signs 01/15/21 01/15/21 01/15/21 19:34 19:49 20:05 Temperature 97.9 F Pulse Rate 114 H 104 H Respiratory 26 H 30 H 26 H Rate Blood Pressure 99/55 121/77 O2 Sat by Pulse 80 L 94 L Oximetry 01/15/21 01/15/21 01/15/21 20:12 20:28 20:33 Temperature Pulse Rate 115 H 113 H Respiratory 30 H 30 H 30 H Rate Blood Pressure 88/65 96/59 O2 Sat by Pulse 89 L 88 L Oximetry 01/15/21 01/15/21 01/15/21 20:35 20:45 21:00 Temperature Pulse Rate 112 H 113 H 104 H Respiratory 32 H 30 H 28 H Rate Blood Pressure 95/70 104/71 103/73 O2 Sat by Pulse 88 L 89 L 96 Oximetry 01/15/21 01/15/21 01/15/21 21:19 21:25 22:00 Temperature 97.8 F Pulse Rate 101 H 103 H Respiratory 26 H 26 H 27 H Rate Blood Pressure 118/74 107/67 O2 Sat by Pulse 98 97 Oximetry Medical Decision Making - Lab Data Result diagrams: 01/16/21 04:52 01/16/21 04:52 Lab Results 01/15/21 01/15/21 01/15/21 Range/Units 20:05 20:05 20:05 WBC 10.5 (3.8-10.6) k/uL RBC 5.12 (4.30-5.90) m/uL Hgb 16.1 (13.0-17.5) gm/dL Hct 47.6 (39.0-53.0) % MCV 92.9 (80.0-100.0) fL MCH 31.4 (25.0-35.0) pg MCHC 33.9 (31.0-37.0) g/dL RDW 12.7 (11.5-15.5) % Plt Count 232 (150-450) k/uL MPV 7.0 Neutrophils % 79 % Lymphocytes % 17 % Monocytes % 3 % Eosinophils % 0 % Basophils % 0 % Neutrophils # 8.3 H (1.3-7.7) k/uL Lymphocytes # 1.8 (1.0-4.8) k/uL Monocytes # 0.3 (0-1.0) k/uL Eosinophils # 0.0 (0-0.7) k/uL Basophils # 0.0 (0-0.2) k/uL Sodium 135 L (137-145) mmol/L Potassium 3.9 (3.5-5.1) mmol/L Chloride 103 (98-107) mmol/L Carbon Dioxide 25 (22-30) mmol/L Anion Gap 7 mmol/L BUN 20 (9-20) mg/dL Creatinine 1.13 (0.66-1.25) mg/dL Est GFR (CKD-EPI)AfAm >90 (>60 ml/min/1.73 sqM) Est GFR (CKD-EPI)NonAf 85 (>60 ml/min/1.73 sqM) Glucose 160 H (74-99) mg/dL Osmolality 292 (280-301) mosm/kg Calcium 8.6 (8.4-10.2) mg/dL Magnesium 1.8 (1.6-2.3) mg/dL Total Bilirubin 0.8 (0.2-1.3) mg/dL AST 197 H (17-59) U/L ALT 172 H (4-49) U/L Alkaline Phosphatase 81 (38-126) U/L Troponin I 0.037 H* (0.000-0.034) ng/mL Total Protein 6.3 (6.3-8.2) g/dL Albumin 3.6 (3.5-5.0) g/dL Salicylates <1.0 mg/dL Acetaminophen <10.0 ug/mL Critical Care Time Critical Care Time: Yes Total Critical Care Time: 33 Disposition Clinical Impression: Overdose, Noncardiogenic pulmonary edema Disposition: ADMITTED IP TO THIS [facility] Condition: Critical
[2021-01-15] MEDS ORDERED: RX INFO: IV CONTRAST WAS GIVEN 1 EACH MISC MISCELLANE PRN (20:26)
[2021-01-15] MEDS: NALOXONE (MDV) 2 MG in SODIUM CHLORIDE 0.9% 250 ML IV SCH ×3 (20:33→23:16)
[2021-01-15 20:35] LABS: ALT 172 U/L (4-49); AST 197 U/L (17-59); Acetaminophen <10.0 ug/mL; African American GFR (CKD) >90 (>60 ml/min/1.73 sqM); Albumin 3.6 g/dL (3.5-5.0); Alkaline Phosphatase 81 U/L (38-126); Anion Gap 7 mmol/L; Blood Urea Nitrogen 20 mg/dL (9-20); Calcium 8.6 mg/dL (8.4-10.2); Carbon Dioxide 25 mmol/L (22-30); Chloride 103 mmol/L (98-107); Glucose 160 mg/dL (74-99); Magnesium 1.8 mg/dL (1.6-2.3); Non-African American GFR(CKD) 85 (>60 ml/min/1.73 sqM); Potassium 3.9 mmol/L (3.5-5.1); Salicylate <1.0 mg/dL; Sodium 135 mmol/L (137-145); Total Bilirubin 0.8 mg/dL (0.2-1.3); Total Protein 6.3 g/dL (6.3-8.2)
[2021-01-15 20:36] LABS: Basophils % (A) 0 %; Eosinophils % (A) 0 %; HCT 47.6 % (39.0-53.0); HGB 16.1 gm/dL (13.0-17.5); Lymphocytes # (A) 1.8 k/uL (1.0-4.8); Lymphocytes % (A) 17 %; MCH 31.4 pg (25.0-35.0); MCHC 33.9 g/dL (31.0-37.0); MCV 92.9 fL (80.0-100.0); Monocytes # (A) 0.3 k/uL (0-1.0); Monocytes % (A) 3 %; Neutrophils # (A) 8.3 k/uL (1.3-7.7); Neutrophils % (A) 79 %; Platelet Count 232 k/uL (150-450); RBC 5.12 m/uL (4.30-5.90); RDW 12.7 % (11.5-15.5); WBC 10.5 k/uL (3.8-10.6)
--- NOTE | 2021-01-15 20:42 | XR ---
EXAMINATION TYPE: XR chest 2V DATE OF EXAM: 01/15/2021 COMPARISON: NONE HISTORY: Overdose. Respiratory failure. TECHNIQUE: Single view FINDINGS: There is pulmonary interstitial and airspace edema that is worse on the right side compared to the left. Heart size is normal. There is no pleural effusion. There are chest leads. IMPRESSION: Bilateral pulmonary edema that is worse on the right side.
[2021-01-15] MEDS ORDERED: SODIUM CHLORIDE 0.9% 1,000 ML IV SCH (21:00)
[2021-01-15 21:33] LABS: ABG Base Excess -2.3 mmol/L; ABG HCO3 23 mmol/L (21-25); ABG PCO2 43 mmHg (35-45); ABG PH 7.34 (7.35-7.45); ABG PO2 156 mmHg (83-108); ABG TCO2 25 mmol/L (19-24); Allen Test Performed? Yes
--- NOTE | 2021-01-15 21:48 | CT ---
EXAMINATION TYPE: CT chest w con DATE OF EXAM: 01/15/2021 COMPARISON: 11/08/2019 HISTORY: Hemoptysis, overdose, abnormal XR CT DLP: 568.9 mGycm Automated exposure control for dose reduction was used. CONTRAST: Performed with IV Contrast, patient injected with 100 mL of Isovue 300. Images obtained from the thoracic inlet to the diaphragm with IV contrast. There is extensive groundglass interstitial infiltrate throughout the lungs. There is no pulmonary ma ss. Heart size is normal. There are no hilar masses. There is no mediastinal adenopathy. Thoracic aor ta is intact. There is no aneurysm or dissection. Bony thorax is intact. Thoracic spine is intact. There is no compression fracture. Sternum is intact. IMPRESSION: There is diffuse pulmonary interstitial edema. Normal heart. No evidence of pulmonary embolism. Pulmo nary infiltrates are new compared to old exam.
[2021-01-15 22:20] LABS: Glucose,Whole Blood 120 mg/dL (75-99)
[2021-01-15 22:27] LABS: Cocaine Screen,Urine Not Detected (NotDetected); Opiate Screen,Urine Not Detected (NotDetected); Phencyclidine Screen,Urine Not Detected (NotDetected); Urn Cannabinoid Scrn Detected (NotDetected)
[2021-01-15 22:28] LABS: Amphetamine Screen,Urine Detected (NotDetected); Barbiturate Screen,Urine Not Detected (NotDetected); Benzodiazepines Screen,Urine Not Detected (NotDetected); Methadone Screen, Urine Not Detected (NotDetected); Oxycodone Screen, Urine Not Detected (NotDetected); Tricyclic Antidepressant,Urine Not Detected (NotDetected)
[2021-01-15] MEDS: FUROSEMIDE 10 MG/ML 4 ML VIAL IV SCH (22:58)
[2021-01-15] MEDS: SODIUM CHLORIDE 0.9% 1,000 ML IV SCH (22:59)
[2021-01-16] MEDS: NALOXONE (MDV) 2 MG in SODIUM CHLORIDE 0.9% 250 ML IV SCH ×4 (01:59→15:32)
[2021-01-16 05:43] LABS: Basophils % (A) 0 %; Eosinophils % (A) 0 %; HCT 44.5 % (39.0-53.0); HGB 14.7 gm/dL (13.0-17.5); Lymphocytes % (A) 13 %; MCV 93.8 fL (80.0-100.0); Monocytes # (A) 0.4 k/uL (0-1.0); Monocytes % (A) 3 %; Neutrophils # (A) 12.8 k/uL (1.3-7.7); Neutrophils % (A) 84 %; Platelet Count 191 k/uL (150-450); RBC 4.74 m/uL (4.30-5.90); RDW 12.3 % (11.5-15.5); WBC 15.3 k/uL (3.8-10.6)
[2021-01-16 05:55] LABS: ALT 124 U/L (4-49); AST 107 U/L (17-59); African American GFR (CKD) >90 (>60 ml/min/1.73 sqM); Albumin 3.1 g/dL (3.5-5.0); Alkaline Phosphatase 70 U/L (38-126); Anion Gap 6 mmol/L; Blood Urea Nitrogen 19 mg/dL (9-20); Calcium 8.1 mg/dL (8.4-10.2); Carbon Dioxide 23 mmol/L (22-30); Chloride 102 mmol/L (98-107); Glucose 100 mg/dL (74-99); Non-African American GFR(CKD) >90 (>60 ml/min/1.73 sqM); Potassium 3.7 mmol/L (3.5-5.1); Sodium 131 mmol/L (137-145); Total Bilirubin 0.7 mg/dL (0.2-1.3); Total Protein 5.6 g/dL (6.3-8.2)
--- NOTE | 2021-01-16 07:22 | XR ---
EXAMINATION TYPE: XR chest 1V portable DATE OF EXAM: 01/16/2021 CLINICAL HISTORY: Difficulty breathing an pulmonary edema progress study. TECHNIQUE: Single AP portable upright view of the chest is obtained. COMPARISON: Chest x-ray and CT chest from one day earlier. FINDINGS: Multifocal and confluent opacities throughout the right lung redemonstrated. Patchy ground glass opacities in the left lung CT less well seen on plain films but likely improving. Cardiac silho uette size stable and within normal limits. Surgical changes bilateral shoulders redemonstrated. IMPRESSION: Some improved aeration in the left lung. Persistent multifocal and confluent right lung o pacities could reflect hemorrhage and/or infiltrates.
--- NOTE | 2021-01-16 09:58 | P.CNPUL ---
History of Present Illness Consult date: 01/16/21 Chief complaint: Altered mental status History of present illness: This is a 35-year-old male patient who came to the emergency department unresp onsive. He did heroin in unknown quantities and he injected heroin in his vein. He was found to be unresponsive by bystanders. He was given CPR although we were not sure if he had a pulse back then or not. The patient was given Narcan by EMS. He woke up and following that he was brought into the emergency room he was placed on a Narcan drip initially at 2.5 mg per hour and later on at 1 mg pe r hour and currently is off the Narcan. He admits to do heroin. He urine drug screen is not showing any opiates. Is positive for amphetamine, methamphetamine, and is also positive for marijuana. He does have bilateral pulmonary infiltrates consistent with noncardiogenic pulmonary edema or, it is somewhat asymmetric more so on the right and the patient could've had an aspiration pneumonia on the right. The patient was diuresed IV Lasix overnight. Chest x-rays showing some improvement. He was taken off the BiPAP that he was started on throughout the night and currently is on 5 L of oxygen by nasal cannula. No focal neurological deficits. Awake and alert. He has history of polysubstance abuse and hepatitis C and an ascending aortic aneurysm measuring about 4 cm in size. No seizure activity. Blood work is essentially within normal limits and the patient has some mild transaminitis could be related to his previous hepatitis C. COVID-19 testing was negative. Review of Systems This current review of system is negative and the patient has no specific complaints pain no respiratory distress. He was completely unresponsive. No seizure activity has been noted. ROS unobtainable: due to mental status Past Medical History Past Medical History: No Reported History Additional Past Medical History / Comment(s): Aortic aneurysm, hepatitis C viral infection, history of polysubstance abuse, history of IVDA History of Any Multi-Drug Resistant Organisms: Unobtainable Past Surgical History: Orthopedic Surgery Additional Past Surgical History / Comment(s): Rotator cuff. Pt. states he has h ad "Some kind of MRSA or something multiple times over the last year" States "All over my arms,legs, everywhere Past Anesthesia/Blood Transfusion Reactions: No Reported Reaction Past Psychological History: No Psychological Hx Reported Smoking Status: Current every day smoker Past Alcohol Use History: Occasional Past Drug Use History: Heroin Medications and Allergies Home Medications Medication Instructions Recorded Confirmed Type No Known Home Medications 01/15/21 01/15/21 History Allergies Allergy/AdvReac Type Severity Reaction Status Date / Time No Known Allergies Allergy Verified 01/15/21 20:24 Physical Exam Vitals: Vital Signs Temp Pulse Resp BP Pulse Ox 01/16/21 08:00 98 F 72 19 107/62 98 01/16/21 07:00 80 33 H 106/67 96 01/16/21 06:00 84 20 112/67 01/16/21 05:00 84 16 107/68 95 01/16/21 04:00 83 15 114/67 91 L 01/16/21 03:00 73 19 109/67 94 L 01/16/21 02:31 99 01/16/21 02:00 87 16 109/70 97 01/16/21 01:59 22 01/16/21 01:00 98 19 97 01/16/21 00:00 103 H 22 111/68 97 01/15/21 23:16 25 H 01/15/21 23:00 98 24 112/70 98 01/15/21 22:30 105 H 26 H 110/68 99 01/15/21 22:00 97.8 F 103 H 27 H 107/67 97 01/15/21 21:25 101 H 26 H 118/74 98 01/15/21 21:19 26 H 01/15/21 21:00 104 H 28 H 103/73 96 01/15/21 20:45 113 H 30 H 104/71 89 L 01/15/21 20:35 112 H 32 H 95/70 88 L 01/15/21 20:33 30 H 01/15/21 20:28 113 H 30 H 96/59 88 L 01/15/21 20:12 115 H 30 H 88/65 89 L 01/15/21 20:05 104 H 26 H 121/77 94 L 01/15/21 19:49 30 H 01/15/21 19:34 97.9 F 114 H 26 H 99/55 80 L Intake and Output 01/15/21 01/16/21 01/16/21 22:59 06:59 14:59 Intake Total 609.583 820 800 Output Total 50 2130 60 Balance 559.583 -1310 740 Intake: IV 120 120 Sodium Chloride 0.9% 1, 120 000 ml @ 120 mls/hr IV . Q8H20M COUNT INCLUDES THE [facility] Rx#:[id number] Sodium Chloride 0.9% 1, 120 000 ml @ 20 mls/hr IV . Q24H COUNT INCLUDES THE [facility] Rx#:[id number] Intake, IV Titration 489.583 100 Amount Naloxone (Mdv) 2 mg In 489.583 100 Sodium Chloride 0.9% 250 ml @ 1 MG/HR 125 mls/hr IV .Q2H COUNT INCLUDES THE [facility] Rx#:[id number] Oral 800 Tube Feeding 600 Output: Urine 50 2130 60 Other: Voiding Method Self-Catheterization Self-Catheterization Weight 77.111 kg 77.111 kg The patient appeared well nourished and normally developed. Vital signs as documented. Currently on 5 L about 2 by nasal cannula fully alert and awake and following commands. Head exam is unremarkable. No scleral icterus or corneal arcus noted. Neck is without jugular venous distension, thyromegaly, or carotid bruits. Carotid upstrokes are brisk bilaterally. Lungs are diminished breath sounds bilaterally and the patient's crackles bilaterally more so on the right.. Cardiac exam reveals the PMI to be normally sized and situated. Rhythm is regular. First and second heart sounds normal. No murmurs, rubs or gallops. Abdominal exam reveals normal bowel sounds, no masses, no organomegaly and no aortic enlargement. Extremities are nonedematous and both femoral and pedal pulses are normal.Examination of the skin revealed no evidence of significant rashes, suspicious appearing nevi or other concerning lesions.Neurologically, the patient is awake and alert and the patient does not have any focal neurological deficit. Cranial nerves are essentially intact. Results - Laboratory Findings CBC and BMP: 01/16/21 04:52 01/16/21 04:52 ABG ABG pH 7.34 (7.35-7.45) L 01/15/21 21:29 ABG pCO2 43 mmHg (35-45) 01/15/21 21:29 ABG pO2 156 mmHg (83-108) H 01/15/21 21:29 ABG O2 Saturation 99.0 % (94-97) H 01/15/21 21:29 Abnormal lab findings: Abnormal Labs 01/15/21 01/15/21 01/15/21 20:05 20:05 20:05 WBC Neutrophils # 8.3 H ABG pH ABG pO2 ABG Total CO2 ABG O2 Saturation Sodium 135 L Glucose 160 H POC Glucose (mg/dL) Calcium AST 197 H ALT 172 H Troponin I 0.037 H* Total Protein Albumin Ur Amphetamines Screen U Methamphetamines Scrn U Marijuana (THC) Screen 01/15/21 01/15/21 01/15/21 21:29 21:55 22:18 WBC Neutrophils # ABG pH 7.34 L ABG pO2 156 H ABG Total CO2 25 H ABG O2 Saturation 99.0 H Sodium Glucose POC Glucose (mg/dL) 120 H Calcium AST ALT Troponin I Total Protein Albumin Ur Amphetamines Screen Detected H U Methamphetamines Scrn Detected H U Marijuana (THC) Screen Detected H 01/16/21 01/16/21 04:52 04:52 WBC 15.3 H Neutrophils # 12.8 H ABG pH ABG pO2 ABG Total CO2 ABG O2 Saturation Sodium 131 L Glucose 100 H POC Glucose (mg/dL) Calcium 8.1 L AST 107 H ALT 124 H Troponin I Total Protein 5.6 L Albumin 3.1 L Ur Amphetamines Screen U Methamphetamines Scrn U Marijuana (THC) Screen - Diagnostic Findings Chest x-ray: image reviewed Assessment and Plan Plan: 1 acute heroin overdose, urine drug screen was negative for opiates, this needs to be repeated 2 altered mental status, responded to Narcan and the patient's mentation is back to normal 3 asymmetric noncardiogenic pulmonary edema versus aspiration pneumonia with secondary hypoxic respiratory failure, improving. 4 BiPAP dependent respiratory failure, improved and the patient is currently on 5 L about 2 by nasal cannula 5 acute hypoxic respiratory failure 6. Substance abuse with positive amphetamine, methamphetamine and marijuana. He admits to do heroin 7 history of hepatitis C viral infection 8 abnormal LFTs secondary to above 9 history of ascending aortic aneurysm Plan Discontinue the Narcan drip Put the patient on IV Zosyn as an empiric antibiotic coverage Wean down FiO2 as tolerated to maintain a saturation above 90% 2-D echocardiogram Continue IV Lasix for another 24 hours Provide diet IV Protonix Heparin subcu for DVT prophylaxis Transfer out of the intensive care unit. BiPAP has been discontinued.
[2021-01-16] MEDS: PANTOPRAZOLE 40 MG/10 ML VIAL IVP SCH (10:15)
[2021-01-16] MEDS: ENOXAPARIN 30 MG/0.3 ML SYRINGE SQ SCH (10:15)
[2021-01-16] MEDS: FUROSEMIDE 10 MG/ML 4 ML VIAL IV SCH ×2 (10:29→19:40)
--- NOTE | 2021-01-16 14:53 | P.HPIM ---
History of Present Illness Patient is a 35-year-old male came in to the emergency department after he he injected what believed to be heroine as per the patient. Patient was unresponsive patient was a had a brief CPR and that did receive Marcaine after which patient became minimally responsive patient was started on Narcan drip was admitted to ICU. Patient the drug screen did not show an opiates but did show amphotericin with amphetamines. Patient is unaware if this is car-fentanyl. Patient was her diabetes done Lasix with some worsening of serum sodium. Patient can use to be on IV Lasix patient chest x-ray showed pulmonary infiltrates believed to be noncardiogenic pulmonary edema can be related to brief cardiac respiratory arrest. Patient is also on empiric Ativan except this time. Patient is presently on file symmastia cannulae oxygen patient is cleared to go to medical floor Narcan drip was discussed in your patient is awake and alert but still drowsy. Patient does have history of hepatitis C with elevated liver enzymes. REVIEW OF SYSTEMS: CONSTITUTIONAL: No fever, no malaise, no fatigue. HEENT: No recent visual problems or hearing problems. Denied any sore throat. CARDIOVASCULAR: No chest pain, orthopnea, PND, no palpitations, no syncope. PULMONARY: No shortness of breath, no cough, no hemoptysis. GASTROINTESTINAL: No diarrhea, no nausea, no vomiting, no abdominal pain. NEUROLOGICAL: No headaches, no weakness, no numbness. HEMATOLOGICAL: Denies any bleeding or petechiae. GENITOURINARY: Denies any burning micturition, frequency, or urgency. MUSCULOSKELETAL/RHEUMATOLOGICAL: Denies any joint pain, swelling, or any muscle pain. ENDOCRINE: Denies any polyuria or polydipsia. The rest of the 14-point review of systems is negative. PHYSICAL EXAMINATION: GENERAL: The patient is alert and oriented x3, not in any acute distress. Well developed, well nourished. HEENT: Pupils are round and equally reacting to light. EOMI. No scleral icterus. No conjunctival pallor. Normocephalic, atraumatic. No pharyngeal erythema. No thyromegaly. CARDIOVASCULAR: S1 and S2 present. No murmurs, rubs, or gallops. PULMONARY: Diffuse bilateral rhonchi and crackles ABDOMEN: Soft, nontender, nondistended, normoactive bowel sounds. No palpable organomegaly. MUSCULOSKELETAL: No joint swelling or deformity. EXTREMITIES: No cyanosis, clubbing, or pedal edema. NEUROLOGICAL: Gross neurological examination did not reveal any focal deficits. SKIN: No rashes. Assessment and plan -Possible low-dose and opiates patient to opiates are negative this can be still Car-frontal low-dose which usually doesn't show up on the drug screens patient is still has constricted pupils and did improve with Narcan drip. -Noncardiogenic pulmonary edema probably significant cardiac respiratory arrest patient will be continued on Lasix for now -Acute hypoxic respiratory failure secondary to non-cardiogenic pulmonary edema. Patient was on BiPAP now on file liters of nasal cannula oxygen -Polysubstance abuse -History of IV drug use in the past and patient quit using drugs patient does have a history of hepatitis C with elevated liver enzymes which is chronic elevation Mild elevation of troponins: Secondary to brief cardiopulmonary arrest. -Mild hyponatremia probably secondary to hypovolemia will continue Lasix. -Leukocytosis reactive patient is on empiric antibiotics as per marine technician DVT prophylaxis: Lovenox Past Medical History Past Medical History: No Reported History Additional Past Medical History / Comment(s): Aortic aneurysm, hepatitis C viral infection, history of polysubstance abuse, history of IVDA History of Any Multi-Drug Resistant Organisms: None Reported Past Surgical History: Orthopedic Surgery Additional Past Surgical History / Comment(s): Rotator cuff. Pt. states he has had "Some kind of MRSA or something multiple times over the last year" States "All over my arms,legs, everywhere Past Anesthesia/Blood Transfusion Reactions: No Reported Reaction Past Psychological History: No Psychological Hx Reported Smoking Status: Current every day smoker Past Alcohol Use History: Occasional Past Drug Use History: Heroin Medications and Allergies Home Medications Medication Instructions Recorded Confirmed Type No Known Home Medications 01/15/21 01/15/21 History Allergies Allergy/AdvReac Type Severity Reaction Status Date / Time No Known Allergies Allergy Verified 01/15/21 20:24 Physical Exam Vitals: Vital Signs Temp Pulse Resp BP Pulse Ox 01/16/21 14:00 77 14 107/78 99 01/16/21 13:00 16 129/71 99 01/16/21 12:00 71 12 125/69 99 01/16/21 11:00 79 15 111/69 98 01/16/21 10:00 77 10 L 104/71 97 01/16/21 09:00 75 12 103/68 98 01/16/21 08:00 98 F 72 19 107/62 98 01/16/21 07:00 80 33 H 106/67 96 01/16/21 06:00 84 20 112/67 01/16/21 05:00 84 16 107/68 95 01/16/21 04:00 83 15 114/67 91 L 01/16/21 03:00 73 19 109/67 94 L 01/16/21 02:31 99 01/16/21 02:00 87 16 109/70 97 01/16/21 01:59 22 01/16/21 01:00 98 19 97 01/16/21 00:00 103 H 22 111/68 97 01/15/21 23:16 25 H 01/15/21 23:00 98 24 112/70 98 01/15/21 22:30 105 H 26 H 110/68 99 01/15/21 22:00 97.8 F 103 H 27 H 107/67 97 01/15/21 21:25 101 H 26 H 118/74 98 01/15/21 21:19 26 H 01/15/21 21:00 104 H 28 H 103/73 96 01/15/21 20:45 113 H 30 H 104/71 89 L 01/15/21 20:35 112 H 32 H 95/70 88 L 01/15/21 20:33 30 H 01/15/21 20:28 113 H 30 H 96/59 88 L 01/15/21 20:12 115 H 30 H 88/65 89 L 01/15/21 20:05 104 H 26 H 121/77 94 L 01/15/21 19:49 30 H 01/15/21 19:34 97.9 F 114 H 26 H 99/55 80 L Intake and Output 01/15/21 01/16/21 01/16/21 22:59 06:59 14:59 Intake Total 609.335 034 8570 Output Total 50 2130 1910 Balance 559.361 -1317 -055 Intake: IV 120 120 Sodium Chloride 0.9% 1, 120 000 ml @ 120 mls/hr IV . Q8H20M [facility] Rx#:[id number] Sodium Chloride 0.9% 1, 120 000 ml @ 20 mls/hr IV . Q24H [facility] Rx#:[id number] Intake, IV Titration 489.583 100 Amount Naloxone (Mdv) 2 mg In 489.583 100 Sodium Chloride 0.9% 250 ml @ 1 MG/HR 125 mls/hr IV .Q2H [facility] Rx#:[id number] Oral 800 Tube Feeding 600 400 Output: Urine 50 0 1910 Other: Voiding Method Self-Catheterization Self-Catheterization Indwelling Catheter Weight 77.111 kg 77.111 kg Results CBC & Chem 7: 01/16/21 04:52 01/16/21 04:52 Labs: Abnormal Lab Results - Last 24 Hours (Table) 01/15/21 01/15/21 01/15/21 Range/Units 20:05 20:05 20:05 WBC (3.8-10.6) k/uL Neutrophils # 8.3 H (1.3-7.7) k/uL ABG pH (7.35-7.45) ABG pO2 (83-108) mmHg ABG Total CO2 (19-24) mmol/L ABG O2 Saturation (94-97) % Sodium 135 L (137-145) mmol/L Glucose 160 H (74-99) mg/dL POC Glucose (mg/dL) (75-99) mg/dL Calcium (8.4-10.2) mg/dL AST 197 H (17-59) U/L ALT 172 H (4-49) U/L Troponin I 0.037 H* (0.000-0.034) ng/mL Total Protein (6.3-8.2) g/dL Albumin (3.5-5.0) g/dL Ur Amphetamines Screen (NotDetected) U Methamphetamines Scrn (NotDetected) U Marijuana (THC) Screen (NotDetected) 01/15/21 01/15/21 01/15/21 Range/Units 21:29 21:55 22:18 WBC (3.8-10.6) k/uL Neutrophils # (1.3-7.7) k/uL ABG pH 7.34 L (7.35-7.45) ABG pO2 156 H (83-108) mmHg ABG Total CO2 25 H (19-24) mmol/L ABG O2 Saturation 99.0 H (94-97) % Sodium (137-145) mmol/L Glucose (74-99) mg/dL POC Glucose (mg/dL) 120 H (75-99) mg/dL Calcium (8.4-10.2) mg/dL AST (17-59) U/L ALT (4-49) U/L Troponin I (0.000-0.034) ng/mL Total Protein (6.3-8.2) g/dL Albumin (3.5-5.0) g/dL Ur Amphetamines Screen Detected H (NotDetected) U Methamphetamines Scrn Detected H (NotDetected) U Marijuana (THC) Screen Detected H (NotDetected) 01/16/21 01/16/21 Range/Units 04:52 04:52 WBC 15.3 H (3.8-10.6) k/uL Neutrophils # 12.8 H (1.3-7.7) k/uL ABG pH (7.35-7.45) ABG pO2 (83-108) mmHg ABG Total CO2 (19-24) mmol/L ABG O2 Saturation (94-97) % Sodium 131 L (137-145) mmol/L Glucose 100 H (74-99) mg/dL POC Glucose (mg/dL) (75-99) mg/dL Calcium 8.1 L (8.4-10.2) mg/dL AST 107 H (17-59) U/L ALT 124 H (4-49) U/L Troponin I (0.000-0.034) ng/mL Total Protein 5.6 L (6.3-8.2) g/dL Albumin 3.1 L (3.5-5.0) g/dL Ur Amphetamines Screen (NotDetected) U Methamphetamines Scrn (NotDetected) U Marijuana (THC) Screen (NotDetected) Thrombosis Risk Factor Assmnt - Choose All That Apply Any of the Below Risk Factors Present?: No Other Risk Factors: No Other congenital or acquired thrombophilia - If yes, enter type in comment: No Thrombosis Risk Factor Assessment Level: Very Low Risk
[2021-01-16 15:36] LABS: African American GFR (CKD) >90 (>60 ml/min/1.73 sqM); Anion Gap 7 mmol/L; Blood Urea Nitrogen 20 mg/dL (9-20); Calcium 8.2 mg/dL (8.4-10.2); Carbon Dioxide 21 mmol/L (22-30); Chloride 103 mmol/L (98-107); Glucose 100 mg/dL (74-99); Non-African American GFR(CKD) >90 (>60 ml/min/1.73 sqM); Potassium 3.7 mmol/L (3.5-5.1); Sodium 131 mmol/L (137-145)
[2021-01-16] MEDS: PIPERACILLIN-TAZOBACTAM 3.375 GM in SODIUM CHLORIDE 0.9% 100 ML IVPB SCH ×2 (16:52→23:24)
[2021-01-16] MEDS: ACETAMINOPHEN TAB 325 MG TAB PO PRN (23:23)
[2021-01-16] MEDS: SODIUM CHLORIDE 0.9% 1,000 ML IV SCH (23:24)
[2021-01-17 03:36] VITALS: RESP 16
[2021-01-17] MEDS: ACETAMINOPHEN TAB 325 MG TAB PO PRN (05:26)
[2021-01-17 07:15] LABS: ALT 91 U/L (4-49); AST 53 U/L (17-59); African American GFR (CKD) >90 (>60 ml/min/1.73 sqM); Albumin 3.4 g/dL (3.5-5.0); Albumin/Globulin Ratio 1.2; Alkaline Phosphatase 67 U/L (38-126); Anion Gap 6 mmol/L; Blood Urea Nitrogen 16 mg/dL (9-20); Carbon Dioxide 30 mmol/L (22-30); Chloride 98 mmol/L (98-107); Globulin 2.8 g/dL; Glucose 93 mg/dL (74-99); Non-African American GFR(CKD) >90 (>60 ml/min/1.73 sqM); Potassium 3.9 mmol/L (3.5-5.1); Sodium 134 mmol/L (137-145); Total Bilirubin 1.5 mg/dL (0.2-1.3); Total Protein 6.2 g/dL (6.3-8.2)
[2021-01-17 07:53] VITALS: BP 105/71; PULSE 62; TEMP 97.3
[2021-01-17] MEDS: PIPERACILLIN-TAZOBACTAM 3.375 GM in SODIUM CHLORIDE 0.9% 100 ML IVPB SCH (08:21)
[2021-01-17] MEDS: ENOXAPARIN 30 MG/0.3 ML SYRINGE SQ SCH (08:23)
[2021-01-17] MEDS: FUROSEMIDE 10 MG/ML 4 ML VIAL IV SCH (08:23)
[2021-01-17] MEDS: PANTOPRAZOLE 40 MG/10 ML VIAL IVP SCH (08:23)
[2021-01-17 08:57] LABS: HCT 43.5 % (39.6-50.0); HGB 15.1 g/dL (13.0-17.0); MCH 31.7 pg (27.0-32.0); MCHC 34.7 g/dL (32.0-37.0); MCV 91.2 fL (80.0-97.0); Mean Platelet Volume 9.3 fL (9.5-12.2); Platelet Count 189 X 10*3/uL (140-440); RBC 4.77 X 10*6/uL (4.40-5.60); RDW 12.1 % (11.5-14.5); WBC 9.33 X 10*3/uL (4.50-10.00)
--- NOTE | 2021-01-17 12:16 | P.DS ---
Providers Date of admission: 01/15/21 20:52 Attending physician: Deepika Beckett MD Consults: 01/15/21 20:52 Consult Physician Stat Consulting Provider: Yazmin Arshad Consult Reason/Comments: icu patient Do you want consulting provider notified?: Already Contacted Primary care physician: Stated None Hospital Course: Patient is a 35-year-old male came in to the emergency department after he he injected what believed to be heroine as per the patient. Patient was unresponsive patient was a had a brief CPR and that did receive Marcaine after which patient became minimally responsive patient was started on Narcan drip was admitted to ICU. Patient the drug screen did not show an opiates but did show amphotericin with amphetamines. Patient is unaware if this is car-fentanyl. Patient was her diabetes done Lasix with some worsening of serum sodium. Patient can use to be on IV Lasix patient chest x-ray showed pulmonary infiltrates believed to be noncardiogenic pulmonary edema can be related to brief cardiac respiratory arrest. Patient is also on empiric Ativan except this time. Patient is presently on file symmastia cannulae oxygen patient is cleared to go to medical floor Narcan drip was discussed in your patient is awake and alert but still drowsy. Patient does have history of hepatitis C with elevated liver enzymes. 01/17/2021 Patient is off oxygen his left lung infiltrate improved but still has significant infiltrate appears to be noncardiac pulmonary edema although right- sided aspiration cannot be ruled out discussed with pulmonary cleared by pulmonary patient will be discharged on Augmentin for 5 days symptoms sodium did improve leukocytosis resolved. PHYSICAL EXAMINATION: GENERAL: The patient is alert and oriented x3, not in any acute distress. Well developed, well nourished. HEENT: Pupils are round and equally reacting to light. EOMI. No scleral icterus. No conjunctival pallor. Normocephalic, atraumatic. No pharyngeal erythema. No thyromegaly. CARDIOVASCULAR: S1 and S2 present. No murmurs, rubs, or gallops. PULMONARY: Diffuse bilateral rhonchi and crackles ABDOMEN: Soft, nontender, nondistended, normoactive bowel sounds. No palpable organomegaly. MUSCULOSKELETAL: No joint swelling or deformity. EXTREMITIES: No cyanosis, clubbing, or pedal edema. NEUROLOGICAL: Gross neurological examination did not reveal any focal deficits. SKIN: No rashes. Assessment and plan -Possible over-dose and opiates patient to opiates are negative this can be still Car-fentanyl which usually doesn't show up on the drug screens patient was on Narcan drip and less today significant improvement are not N drip -Noncardiogenic pulmonary edema probably significant cardiac respiratory arrest patient will be continued on Lasix for now can be right-sided aspiration as well. Patient has significant infiltrate on the right side which improved today compared to yesterday -Acute hypoxic respiratory failure secondary to non-cardiogenic pulmonary edema. She is off oxyge -History of IV drug use in the past and patient quit using drugs patient does have a history of hepatitis C, patient will be referred to gastroenterology for management of chronic hep C Mild elevation of troponins: Secondary to brief cardiopulmonary arrest. -Mild hyponatremia improved with Lasix Patient Condition at Discharge: Critical Plan - Discharge Summary Discharge Rx Participant: Yes New Discharge Prescriptions: New Amoxic-Pot Clav 875-125Mg [Augmentin 875-125] 1 tab PO BID 5 Days #10 tab Discharge Medication List Amoxic-Pot Clav 875-125Mg [Augmentin 875-125] 1 tab PO BID 5 Days #10 tab 01/17/21 [Rx] Follow up Appointment(s)/Referral(s): None,Stated [Primary Care Provider] - 1-2 days
--- NOTE | 2021-01-17 12:51 | XR ---
EXAMINATION TYPE: XR chest 2V DATE OF EXAM: 01/17/2021 COMPARISON: Chest x-ray from yesterday. CT chest from 2 days ago. HISTORY: Pneumonia. TECHNIQUE: Frontal and lateral views of the chest are obtained. FINDINGS: Persistent but improved diffuse right lung opacity. Continued improving more faint left-s ided opacities The cardiac silhouette size is stable and within normal limits. The osseous structur es are intact. IMPRESSION: Continued improving right greater than lung multifocal and confluent infiltrates consist ent with resolving covid-19 infection.
--- NOTE | 2021-01-17 13:58 | P.PN ---
Subjective Progress Note Date: 01/17/21 01/17/2021, the patient is doing extremely well. Is on room air oxygen. Chest x-ray shows significant clearing of the bilateral pulmonary infiltrates. He is currently on room air oxygen. No agitation. No altered mentation. No cardiac arrhythmias. No other complaints otherwise. Objective - Vital Signs Vital signs: Vital Signs Temp 97.3 F L 01/17/21 06:59 Pulse 62 01/17/21 07:12 Resp 16 01/17/21 07:12 BP 105/71 01/17/21 06:59 Pulse Ox 95 01/17/21 06:59 Intake & Output 01/16/21 01/17/21 01/17/21 18:59 06:59 18:59 Intake Total 1270 260 840 Output Total 0 3650 Balance -640 -3390 840 Weight 77.111 kg Intake: IV 70 260 Piperacillin-Tazobactam 3 50 100 .375 gm In Sodium Chloride 0.9% 100 ml @ 25 mls/hr IVPB Q8HR [facility] Rx# :[id number] Sodium Chloride 0.9% 1, 20 160 000 ml @ 20 mls/hr IV . Q24H [facility] Rx#:[id number] Oral 800 840 Tube Feeding 400 Output: Urine 1909 3649 Other: Voiding Method Indwelling Catheter Urinal - Exam The patient appeared well nourished and normally developed. Vital signs as documented. Head exam is unremarkable. No scleral icterus or corneal arcus noted. Neck is without jugular venous distension, thyromegaly, or carotid bruit s. Carotid upstrokes are brisk bilaterally. Lungs are clear to auscultation and percussion. Cardiac exam reveals the PMI to be normally sized and situated. Rhythm is regular. First and second heart sounds normal. No murmurs, rubs or gallops. Abdominal exam reveals normal bowel sounds, no masses, no organomegaly and no aortic enlargement. Extremities are nonedematous and both femoral and pedal pulses are normal. - Labs CBC & Chem 7: 01/17/21 06:20 01/17/21 06:20 Labs: Abnormal Lab Results - Last 24 Hours (Table) 01/16/21 01/17/21 01/17/21 Range/Units 14:48 06:20 06:20 MPV 9.3 L (9.5-12.2) fL Sodium 131 L 134 L (137-145) mmol/L Carbon Dioxide 21 L (22-30) mmol/L Glucose 100 H (74-99) mg/dL Calcium 8.2 L (8.4-10.2) mg/dL Total Bilirubin 1.5 H (0.2-1.3) mg/dL ALT 91 H (4-49) U/L Total Protein 6.2 L (6.3-8.2) g/dL Albumin 3.4 L (3.5-5.0) g/dL Assessment and Plan Plan: 1 acute heroin overdose, urine drug screen was negative for opiates, , consider possibility of Fentanyl derivatives used as the patient responded nicely to Narcan. 2 altered mental status, responded to Narcan and the patient's mentation is back to normal 3 asymmetric noncardiogenic pulmonary edema versus aspiration pneumonia with se condary hypoxic respiratory failure, improving. The chest x-ray shows further clearing of the bilateral pulmonary infiltrates 4 BiPAP dependent respiratory failure, improved and the patient is currently on 5 L about 2 by nasal cannula, recovered and the patient is currently on room air oxygen 5 acute hypoxic respiratory failure, recovered 6. Substance abuse with positive amphetamine, methamphetamine and marijuana. He admits to do heroin 7 history of hepatitis C viral infection 8 abnormal LFTs secondary to above 9 history of ascending aortic aneurysm Plan Consider 5 day course of Augmentin at the time of discharge Patient is on room air oxygen Patient can be potentially discharged home today. This case was discussed with the medical team
[2021-01-19 01:49] LABS: Urine Alcohol Negative (Negative); Urine Barbiturate Negative (Negative); Urine Cocaine Negative (Negative); Urine Methadone Negative (Negative); Urine Opiates Negative (Negative); Urine Phencyclidine Negative (Negative)
== END 2021-01-17 13:45 | disposition home or self-care (01) | DRG 917 ==
LOC: EC 19:32 → 2SICU 20:52 → 4SSUR 01-16 18:46
PROVIDERS: ADMIT Internal Medicine; ATTEND Internal Medicine
PROC: 5A09357 Assistance with Respiratory Ventilation, Less than 24 Consecutive Hours, Continuous Positive Airway Pressure (ICD-10-PCS; principal; 2021-01-15)
DX: T40.1X1A Poisoning by heroin, accidental (unintentional), initial encounter (principal); I46.9 Cardiac arrest, cause unspecified; J96.01 Acute respiratory failure with hypoxia; J69.0 Pneumonitis due to inhalation of food and vomit; E87.1 Hypo-osmolality and hyponatremia; F15.20 Other stimulant dependence, uncomplicated; I71.2 Thoracic aortic aneurysm, without rupture; J70.4 Drug-induced interstitial lung disorders, unspecified; F12.10 Cannabis abuse, uncomplicated; E11.9 Type 2 diabetes mellitus without complications; Z20.822 Contact with and (suspected) exposure to COVID-19; E86.1 Hypovolemia; B19.20 Unspecified viral hepatitis C without hepatic coma; M25.511 Pain in right shoulder; M25.512 Pain in left shoulder; R74.01 Elevation of levels of liver transaminase levels; R74.8 Abnormal levels of other serum enzymes; F17.200 Nicotine dependence, unspecified, uncomplicated; Z86.14 Personal history of Methicillin resistant Staphylococcus aureus infection; Z87.39 Personal history of other diseases of the musculoskeletal system and connective tissue; Z98.890 Other specified postprocedural states
CPT/HCPCS: 36415; 71045; 71046; 71260; 80048; 80053; 80143; 80179; 80306; 82805; 83735; 83930; 84484; 85025; 85027; 87635; 93005; 93306; 94660; 94760; 96374; 99291

== ENCOUNTER 2022-11-27 19:03 | Emergency (ER) | payer OTHER ==
--- NOTE | 2022-11-27 22:20 | ED ---
General Adult HPI - General Chief complaint: Recheck/Abnormal Lab/Rx Stated complaint: Urogenital/swelling around neck Time Seen by Provider: 11/27/22 21:10 Source: patient Mode of arrival: ambulatory Limitations: no limitations - History of Present Illness Initial comments: This patient is a 37-year-old man who presents to have evaluation" I don't feel good." The patient states that he has noticed swellings in his groin and armpits as well as his neck going back days to weeks. He is not able to pinpoint the exact onset of when he hasn't been feeling well but states it is much worse over the past 24 hours or so. He has not noted fever or chills. He does have fatigue and some occasional aches. He did have sore throat for number days. He has not noted change in urination or bowel movements. No cough or dyspnea. -: days(s) Consistency: constant Improves with: none Worsens with: none Associated Symptoms: malaise, other (50) - Related Data Previous Rx's Medication Instructions Recorded Amoxic-Pot Clav 875-125Mg 1 tab PO BID 5 Days #10 tab 01/17/21 [Augmentin 875-125] Allergies Allergy/AdvReac Type Severity Reaction Status Date / Time No Known Allergies Allergy Verified 11/27/22 19:16 Review of Systems ROS Statement: Those systems with pertinent positive or pertinent negative responses have been documented in the HPI. ROS Other: All systems not noted in ROS Statement are negative. Constitutional: Denies: fever, chills, night sweats Eyes: Denies: eye discharge ENT: Reports: as per HPI, throat pain. Denies: ear pain, congestion Respiratory: Denies: cough, dyspnea Cardiovascular: Denies: chest pain, edema, syncope Gastrointestinal: Denies: abdominal pain, vomiting, diarrhea Genitourinary: Denies: dysuria, hematuria, testicular pain, testicular mass Musculoskeletal: Reports: myalgia Skin: Denies: rash Neurological: Denies: headache, weakness, numbness Past Medical History Past Medical History: No Reported History Additional Past Medical History / Comment(s): Aortic aneurysm, hepatitis C viral infection, history of polysubstance abuse, history of IVDA History of Any Multi-Drug Resistant Organisms: None Reported Past Surgical History: Orthopedic Surgery Additional Past Surgical History / Comment(s): Rotator cuff. Pt. states he has had "Some kind of MRSA or something multiple times over the last year" States "All over my arms,legs, everywhere Past Anesthesia/Blood Transfusion Reactions: No Reported Reaction Past Psychological History: No Psychological Hx Reported Smoking Status: Current every day smoker Past Alcohol Use History: Occasional Past Drug Use History: Heroin General Exam Limitations: no limitations General appearance: alert, in no apparent distress, other (There are bilateral cervical nodes and bilateral axillary nodes) Head exam: Present: atraumatic, normocephalic Eye exam: Present: normal appearance. Absent: scleral icterus, conjunctival injection ENT exam: Present: normal oropharynx Neck exam: Present: normal inspection, full ROM, lymphadenopathy. Absent: meningismus Respiratory exam: Present: normal lung sounds bilaterally. Absent: respiratory distress, wheezes, rales, rhonchi, stridor Cardiovascular Exam: Present: regular rate, normal rhythm, normal heart sounds. Absent: systolic murmur, diastolic murmur, rubs, gallop GI/Abdominal exam: Present: soft. Absent: distended, tenderness, guarding, rebound, rigid, mass Extremities exam: Present: normal inspection, normal capillary refill. Absent: pedal edema, calf tenderness Back exam: Present: normal inspection. Absent: CVA tenderness (R), CVA tenderness (L) Neurological exam: Present: alert Skin exam: Present: warm, dry, intact, normal color. Absent: rash Course Vital Signs 11/27/22 11/28/22 19:14 00:10 Temperature 99.1 F 98.0 F Pulse Rate 16 L 68 Respiratory 107 H 18 Rate Blood Pressure 107/62 146/97 O2 Sat by Pulse 98 99 Oximetry Medical Decision Making - Medical Decision Making This patient is 37-year-old man who presents with complaint that he is not fe eling well and that he has noted swollen glands throughout his body. The patient's history and physical strongly suggestive of viral syndrome. The initial workup not revealing exact etiology. There are some send out labs pending. Discussed further follow-up with the patient including infectious disease consultation. Was pt. sent in by a medical professional or institution (, PA, DAYCARE WORKER, urgent care, hospital, or usp...) When possible be specific @ -[No] Did you speak to anyone other than the patient for history (EMS, parent, family, police, friend...)? What history was obtained from this source @ -[No] Did you review nursing and triage notes (agree or disagree)? Why? @ -[I reviewed and agree with nursing and triage notes] Were old charts reviewed (outside hosp., previous admission, EMS record, old EKG, old radiological studies, urgent care reports/EKG's, usp records)? Report findings @ -[No old charts were reviewed] Differential Diagnosis (chest pain, altered mental status, abdominal pain women, abdominal pain men, vaginal bleeding, weakness, fever, dyspnea, syncope, headache, dizziness, GI bleed, back pain, seizure, CVA, palpatations, mental health, musculoskeletal)? @ -[The differential for lymphadenitis includes infections listed: Pneumonia, viral syndromes, endocarditis, myocarditis, pericarditis, otitis, sinusitis, peritonsillar Abscess, retropharyngeal Abscess, epiglottitis, peritonitis, appendicitis, Dianne cystitis, diverticulitis, hepatitis, colitis, UTI, pyelonephritis, prostatitis, epididymitis, meningitis, encephalitis, pulmonary embolism, CVA, thyroid storm, pancreatitis, adrenal crisis, cavernous sinus thrombosis, as well as lymphatic malignancies, this is not meant to be an all-inclusive list. EKG interpreted by me (3pts min.). @ -[ X-rays interpreted by me (1pt min.). @ -[None done] CT interpreted by me (1pt min.). @ -[None done] U/S interpreted by me (1pt. min.). @ -[None done] What testing was considered but not performed or refused? (CT, X-rays, U/S, labs)? Why? @ -[Computed tomography scan may be required should the send out labs not reveal etiology What meds were considered but not given or refused? Why? @ -[None] Did you discuss the management of the patient with other professionals (professionals i.e. , PA, DAYCARE WORKER, lab, RT, psych nurse, medical social consultant, grease monkey, teacher, employment security officer, rn case mgr)? Give summary @ -[No] Was smoking cessation discussed for >3mins.? @ -[No] Was critical care preformed (if so, how long)? @ -[No] Were there social determinants of health that impacted care today? How? (Homelessness, low income, unemployed, alcoholism, drug addiction, transportation, low edu. Level, literacy, decrease access to med. care, senior care, rehab)? @ -[No] Was there de-escalation of care discussed even if they declined (Discuss DNR or withdrawal of care, Hospice)? DNR status @ -[No] What co-morbidities impacted this encounter? (DM, HTN, Smoking, COPD, CAD, Cancer, CVA, ARF, Chemo, Hep., AIDS, mental health diagnosis, sleep apnea, morbid obesity)? @ -[None] Was patient admitted / discharged? Hospital course, mention meds given and route, prescriptions, significant lab abnormalities, going to OR and other pertinent info. @ -[The patient's initial workup is negative, we discussed appropriate further care and follow-up as well as return parameters, patient advised to follow with the infectious disease specialist, to return if there is any difficulty establishing follow-up Undiagnosed new problem with uncertain prognosis? @ -[No] Drug Therapy requiring intensive monitoring for toxicity (Heparin, Nitro, Insulin, Cardizem)? @ -[No] Were any procedures done? @ -[No] Diagnosis/symptom? @ -[Acute lymphadenitis Acute, or Chronic, or Acute on Chronic? @ -[Acute Uncomplicated (without systemic symptoms) or Complicated (systemic symptoms)? @ -[Uncomplicated Side effects of treatment? @ -[No] Exacerbation, Progression, or Severe Exacerbation? @ -[No] Poses a threat to life or bodily function? How? (Chest pain, [place], [place], pneumonia, PE, COPD, DKA, ARF, appy, cholecystitis, CVA, Diverticulitis, Homicidal, Suicidal, threat to staff... and all critical care pts) @ -[The lymphadenitis may pose a threat to life, patient requiring further diagnostic care and follow-up to ensure no infectious or malignant etiology - Lab Data Result diagrams: 11/27/22 22:07 11/27/22 22:07 Lab Results 11/27/22 11/27/22 11/27/22 Range/Units 22:07 22:07 22:07 WBC 5.4 (3.8-10.6) k/uL RBC 4.41 (4.30-5.90) m/uL Hgb 12.7 L (13.0-17.5) gm/dL Hct 37.8 L (39.0-53.0) % MCV 85.7 (80.0-100.0) fL MCH 28.9 (25.0-35.0) pg MCHC 33.7 (31.0-37.0) g/dL RDW 13.0 (11.5-15.5) % Plt Count 280 (150-450) k/uL MPV 7.2 Neutrophils % 47 % Lymphocytes % 43 % Monocytes % 5 % Eosinophils % 1 % Basophils % 1 % Neutrophils # 2.5 (1.3-7.7) k/uL Lymphocytes # 2.4 (1.0-4.8) k/uL Monocytes # 0.3 (0-1.0) k/uL Eosinophils # 0.1 (0-0.7) k/uL Basophils # 0.0 (0-0.2) k/uL Sodium 139 (137-145) mmol/L Potassium 4.1 (3.5-5.1) mmol/L Chloride 104 (98-107) mmol/L Carbon Dioxide 27 (22-30) mmol/L Anion Gap 8 mmol/L BUN 20 (9-20) mg/dL Creatinine 0.95 (0.66-1.25) mg/dL Est GFR (CKD-EPI)AfAm >90 (>60 ml/min/1.73 sqM) Est GFR (CKD-EPI)NonAf >90 (>60 ml/min/1.73 sqM) Glucose 85 (74-99) mg/dL Plasma Lactic Acid Josh (0.7-2.0) mmol/L Calcium 9.2 (8.4-10.2) mg/dL Total Bilirubin 0.7 (0.2-1.3) mg/dL AST 25 (17-59) U/L ALT 13 (4-49) U/L Alkaline Phosphatase 93 (38-126) U/L C-Reactive Protein 1.0 H (<1.0) mg/dL Total Protein 7.9 (6.3-8.2) g/dL Albumin 4.0 (3.5-5.0) g/dL Urine Color Yellow Urine Appearance Clear (Clear) Urine pH 6.5 (5.0-8.0) Ur Specific Calvin 1.044 H (1.001-1.035) Urine Protein 1+ H (Negative) Urine Glucose (UA) Negative (Negative) Urine Ketones Trace H (Negative) Urine Blood Negative (Negative) Urine Nitrite Negative (Negative) Urine Bilirubin Negative (Negative) Urine Urobilinogen 6.0 (<2.0) mg/dL Ur Leukocyte Esterase Negative (Negative) Urine RBC 5 (0-5) /hpf Urine WBC 3 (0-5) /hpf Urine Mucus Rare H (None) /hpf Coronavirus (PCR) (Not Detectd) Hepatitis A IgM Ab Hep Bs Antigen Hep B Core IgM Ab Hep C IgG Ab (Non-Reactive) Heterophile Antibody (Negative) HIV-1 Antibody HIV p24 Antibody HIV-2 Antibody (Non-Reactive) HIV P24 Antigen (Non-Reactive) 11/27/22 11/27/22 11/27/22 Range/Units 22:07 22:07 22:07 WBC (3.8-10.6) k/uL RBC (4.30-5.90) m/uL Hgb (13.0-17.5) gm/dL Hct (39.0-53.0) % MCV (80.0-100.0) fL MCH (25.0-35.0) pg MCHC (31.0-37.0) g/dL RDW (11.5-15.5) % Plt Count (150-450) k/uL MPV Neutrophils % % Lymphocytes % % Monocytes % % Eosinophils % % Basophils % % Neutrophils # (1.3-7.7) k/uL Lymphocytes # (1.0-4.8) k/uL Monocytes # (0-1.0) k/uL Eosinophils # (0-0.7) k/uL Basophils # (0-0.2) k/uL Sodium (137-145) mmol/L Potassium (3.5-5.1) mmol/L Chloride (98-107) mmol/L Carbon Dioxide (22-30) mmol/L Anion Gap mmol/L BUN (9-20) mg/dL Creatinine (0.66-1.25) mg/dL Est GFR (CKD-EPI)AfAm (>60 ml/min/1.73 sqM) Est GFR (CKD-EPI)NonAf (>60 ml/min/1.73 sqM) Glucose (74-99) mg/dL Plasma Lactic Acid Josh 0.7 (0.7-2.0) mmol/L Calcium (8.4-10.2) mg/dL Total Bilirubin (0.2-1.3) mg/dL AST (17-59) U/L ALT (4-49) U/L Alkaline Phosphatase (38-126) U/L C-Reactive Protein (<1.0) mg/dL Total Protein (6.3-8.2) g/dL Albumin (3.5-5.0) g/dL Urine Color Urine Appearance (Clear) Urine pH (5.0-8.0) Ur Specific Calvin (1.001-1.035) Urine Protein (Negative) Urine Glucose (UA) (Negative) Urine Ketones (Negative) Urine Blood (Negative) Urine Nitrite (Negative) Urine Bilirubin (Negative) Urine Urobilinogen (<2.0) mg/dL Ur Leukocyte Esterase (Negative) Urine RBC (0-5) /hpf Urine WBC (0-5) /hpf Urine Mucus (None) /hpf Coronavirus (PCR) (Not Detectd) Hepatitis A IgM Ab Nonreactive Hep Bs Antigen Nonreactive Hep B Core IgM Ab Nonreactive Hep C IgG Ab Reactive A (Non-Reactive) Heterophile Antibody (Negative) HIV-1 Antibody REACTIVE HIV p24 Antibody REACTIVE HIV-2 Antibody Non-Reactive (Non-Reactive) HIV P24 Antigen Non-Reactive (Non-Reactive) 11/27/22 11/27/22 Range/Units 22:07 22:23 WBC (3.8-10.6) k/uL RBC (4.30-5.90) m/uL Hgb (13.0-17.5) gm/dL Hct (39.0-53.0) % MCV (80.0-100.0) fL MCH (25.0-35.0) pg MCHC (31.0-37.0) g/dL RDW (11.5-15.5) % Plt Count (150-450) k/uL MPV Neutrophils % % Lymphocytes % % Monocytes % % Eosinophils % % Basophils % % Neutrophils # (1.3-7.7) k/uL Lymphocytes # (1.0-4.8) k/uL Monocytes # (0-1.0) k/uL Eosinophils # (0-0.7) k/uL Basophils # (0-0.2) k/uL Sodium (137-145) mmol/L Potassium (3.5-5.1) mmol/L Chloride (98-107) mmol/L Carbon Dioxide (22-30) mmol/L Anion Gap mmol/L BUN (9-20) mg/dL Creatinine (0.66-1.25) mg/dL Est GFR (CKD-EPI)AfAm (>60 ml/min/1.73 sqM) Est GFR (CKD-EPI)NonAf (>60 ml/min/1.73 sqM) Glucose (74-99) mg/dL Plasma Lactic Acid Josh (0.7-2.0) mmol/L Calcium (8.4-10.2) mg/dL Total Bilirubin (0.2-1.3) mg/dL AST (17-59) U/L ALT (4-49) U/L Alkaline Phosphatase (38-126) U/L C-Reactive Protein (<1.0) mg/dL Total Protein (6.3-8.2) g/dL Albumin (3.5-5.0) g/dL Urine Color Urine Appearance (Clear) Urine pH (5.0-8.0) Ur Specific Calvin (1.001-1.035) Urine Protein (Negative) Urine Glucose (UA) (Negative) Urine Ketones (Negative) Urine Blood (Negative) Urine Nitrite (Negative) Urine Bilirubin (Negative) Urine Urobilinogen (<2.0) mg/dL Ur Leukocyte Esterase (Negative) Urine RBC (0-5) /hpf Urine WBC (0-5) /hpf Urine Mucus (None) /hpf Coronavirus (PCR) Not Detected (Not Detectd) Hepatitis A IgM Ab Hep Bs Antigen Hep B Core IgM Ab Hep C IgG Ab (Non-Reactive) Heterophile Antibody Negative (Negative) HIV-1 Antibody HIV p24 Antibody HIV-2 Antibody (Non-Reactive) HIV P24 Antigen (Non-Reactive) Disposition Clinical Impression: Lymphadenopathy Disposition: HOME SELF-CARE Condition: Fair Instructions (If sedation given, give patient instructions): Lymphadenopathy (ED) Is patient prescribed a controlled substance at d/c from ED?: No Referrals: None,Stated [Primary Care Provider] - 1-2 days Angle Mckeon MD [STAFF PHYSICIAN] - 1-2 days
[2022-11-27 22:43] LABS: Basophils % (A) 1 %; Eosinophils # (A) 0.1 k/uL (0-0.7); Eosinophils % (A) 1 %; HCT 37.8 % (39.0-53.0); HGB 12.7 gm/dL (13.0-17.5); Lymphocytes # (A) 2.4 k/uL (1.0-4.8); Lymphocytes % (A) 43 %; MCH 28.9 pg (25.0-35.0); MCHC 33.7 g/dL (31.0-37.0); MCV 85.7 fL (80.0-100.0); Mean Platelet Volume 7.2; Monocytes # (A) 0.3 k/uL (0-1.0); Monocytes % (A) 5 %; Neutrophils # (A) 2.5 k/uL (1.3-7.7); Neutrophils % (A) 47 %; Platelet Count 280 k/uL (150-450); RBC 4.41 m/uL (4.30-5.90); WBC 5.4 k/uL (3.8-10.6)
[2022-11-27 22:45] LABS: Appearance,Urine Clear (Clear); Bilirubin,Urine Negative (Negative); Blood,Urine Negative (Negative); Color,Urine Yellow; Glucose,Urine (UA) Negative (Negative); Ketones,Urine Trace (Negative); Leukocyte Esterase,Urine Negative (Negative); Mucus,Urine Rare /hpf; Nitrite,Urine Negative (Negative); PH, Urine 6.5 (5.0-8.0); Protein,Urine 1+ (Negative); RBC,Urine 5 /hpf (0-5); Specific Gravity,Urine 1.044 (1.001-1.035); WBC,Urine 3 /hpf (0-5)
[2022-11-27 23:02] LABS: ALT 13 U/L (4-49); AST 25 U/L (17-59); African American GFR (CKD) >90 (>60 ml/min/1.73 sqM); Alkaline Phosphatase 93 U/L (38-126); Anion Gap 8 mmol/L; Blood Urea Nitrogen 20 mg/dL (9-20); Calcium 9.2 mg/dL (8.4-10.2); Carbon Dioxide 27 mmol/L (22-30); Chloride 104 mmol/L (98-107); Glucose 85 mg/dL (74-99); Non-African American GFR(CKD) >90 (>60 ml/min/1.73 sqM); Potassium 4.1 mmol/L (3.5-5.1); Sodium 139 mmol/L (137-145); Total Bilirubin 0.7 mg/dL (0.2-1.3); Total Protein 7.9 g/dL (6.3-8.2)
[2022-11-28 00:15] VITALS: BP 146/97; PULSE 68; RESP 18; TEMP 98
[2022-11-28 08:46] LABS: Hepatitis C IgG Antibody Reactive (Non-Reactive)
[2022-11-28 09:14] LABS: Hepatitis A Antibody IgM Nonreactive; Hepatitis B Core IgM Nonreactive; Hepatitis B Surface Antigen Nonreactive
[2022-11-28 14:10] LABS: HIV 2 AB Non-Reactive (Non-Reactive); HIV AB P24 REACTIVE; HIV P24 AG Non-Reactive (Non-Reactive)
== END 2022-11-28 00:14 | disposition home or self-care (01) ==
LOC: EC 19:03
DX: R59.1 Generalized enlarged lymph nodes (principal); F17.200 Nicotine dependence, unspecified, uncomplicated; F11.90 Opioid use, unspecified, uncomplicated; Z20.822 Contact with and (suspected) exposure to COVID-19
CPT/HCPCS: 36415; 80053; 80074; 81001; 83605; 85025; 86140; 86308; 87040; 87389; 87390; 87635; 99283

== ENCOUNTER → 2023-02-20 | Outpatient (CLI) | payer OTHER ==
[2023-02-20 21:44] LABS: Basophils # (A) 0.02 X 10*3/uL (0.00-0.10); Basophils % (A) 0.5 %; Eosinophils # (A) 0.04 X 10*3/uL (0.04-0.35); Eosinophils % (A) 0.9 %; HCT 41.8 % (39.6-50.0); HGB 13.9 d/dL (13.0-17.0); Lymphocytes # (A) 1.92 X 10*3/uL (0.90-5.00); Lymphocytes % (A) 43.9 %; MCH 28.5 pg (27.0-32.0); MCHC 33.3 d/dL (32.0-37.0); MCV 85.7 FL (80.0-97.0); Mean Platelet Volume 9.6 FL (9.5-12.2); Monocytes # (A) 0.24 X 10*3/uL (0.20-1.00); Monocytes % (A) 5.5 %; NRBC Per 100 WBC 0 X 10*3/uL (0.00-0.01); Neutrophils # (A) 2.14 X 10*3/uL (1.80-7.70); Platelet Count 248 X 10*3/uL (140-440); RBC 4.88 X 10*6/uL (4.40-5.60); RDW 13.2 % (11.5-14.5); WBC 4.37 X 10*3/uL (4.50-10.00)
[2023-02-20 22:15] LABS: ALT 10 U/L (10-49); AST 15 U/L (14-35); Albumin 3.9 d/dL (3.8-4.9); Albumin/Globulin Ratio 1.18 Ratio (1.60-3.17); Alkaline Phosphatase 61 U/L (41-126); BUN/Creat Ratio 14.67 Ratio (12.00-20.00); Blood Urea Nitrogen 13.2 mg/dL (9.0-27.0); Calcium 9.3 mg/dL (8.7-10.3); Chloride 106 mmol/L (96-109); Globulin 3.3 d/dL (1.6-3.3); Glucose 80 mg/dL (70-110); Potassium 4.6 mmol/L (3.5-5.5); Sodium 140 mmol/L (135-145); Total Bilirubin 0.5 mg/dL (0.3-1.2); Total Protein 7.2 d/dL (6.2-8.2)
[2023-02-20 23:33] LABS: Hepatitis A Ab, Total Nonreactive; Hepatitis B Surface Antigen Nonreactive
[2023-02-21 04:28] LABS: HIV 2 AB Non-Reactive (Non-Reactive); HIV AB P24 REACTIVE; HIV P24 AG Non-Reactive (Non-Reactive)
[2023-02-21 10:17] LABS: T4/T8 Ratio (CD4:CD8) 0.2 (1.0-3.7)
[2023-02-21 11:17] LABS: HIV-1 RNA DETECTED (Not detected); LOG HIV Copies/mL 5.23 (<1.30)
[2023-02-21 13:46] LABS: C. trachomatis,PCR Negative (Negative)
[2023-02-21 13:55] LABS: N. gonorrhoeae,PCR Negative (Negative)
== END | disposition home or self-care (01) ==
LOC: LABWHC1 13:12
PROVIDERS: ATTEND Physician Assistant
DX: B20 Human immunodeficiency virus [HIV] disease (principal)
CPT/HCPCS: 36415; 80053; 85025; 86360; 86480; 86704; 86706; 86708; 86780; 87340; 87389; 87390; 87491; 87522; 87536; 87591

== ENCOUNTER → 2023-04-12 | Outpatient (CLI) | payer OTHER | END | disposition home or self-care (01) | LOC: LABWHC1 13:43 | PROVIDERS: ATTEND Internal Medicine Infectious Disease | DX: B20 Human immunodeficiency virus [HIV] disease (principal) | CPT/HCPCS: 36415; 87901 ==

== ENCOUNTER 2024-07-17 09:22 | Day surgery (SDC) | payer OTHER ==
[2024-07-17 09:40] VITALS: RESP 16; TEMP 98
[2024-07-17 10:44] VITALS: BP 130/80; PULSE 81
--- NOTE | 2024-07-17 12:50 | US ---
EXAM: US biopsy lymph node DATE OF EXAM: 07/17/2024 COMPARISON: CT dated 05/31/2024 DESCRIPTION: The procedure of ultrasound guided biopsy was explained to the patient. Benefits, alternatives, and risks were discussed. An informed consent was then obtained. The patient was placed in supine positioning for imaging and for the procedure. The overlying skin w as prepped and draped in usual sterile fashion. Lidocaine buffered with bicarbonate was used as anes thetic into the skin and subcutaneous tissue up to area of concern in the left inguinal region. Under ultrasound guidance, a 82-gauge vacuum assisted biopsy needle device was used to obtain 3 core samples. The patient tolerated the procedure well without any immediate complication. The patient was kept in the radiology department for short stay after the procedure and then discharged home in stable condi tion. Impression: Successful, uncomplicated ultrasound guided core biopsy of area abnormal lymph node in th e region of the left inguinal region. Pathology results to follow. [facility], , 07/17/2024 12:47 PM
== END 2024-07-17 10:18 | disposition home or self-care (01) ==
LOC: RADPROMAIN 09:22
PROVIDERS: ATTEND Internal Medicine Infectious Disease
DX: R59.1 Generalized enlarged lymph nodes (principal)
CPT/HCPCS: 38505; 76942; 88305; 88341; 88342

== ENCOUNTER 2024-08-03 18:45 | Emergency (ER) | payer OTHER ==
[2024-08-03 18:51] VITALS: RESP 18
--- NOTE | 2024-08-03 19:23 | ED ---
Extremity Problem HPI - General Chief complaint: Extremity Problem,Nontraumatic Stated complaint: Left Arm Pain Time Seen by Provider: 08/03/24 18:59 Source: patient, RN notes reviewed, old records reviewed Mode of arrival: ambulatory Limitations: no limitations - History of Present Illness Initial comments: This is a 39 male who presents with left shoulder pain left arm pain numbness and tingling down the left arm. Complex medical history including HIV. Patient does see infectious disease not follow primary care no injury no fevers no shortness of breath no chest pain just arm pain down the left arm. Patient states the pain is worsening and he would like to have an MRI MD Complaint: extremity pain, joint pain Location: left, upper extremity History of Same: Yes -: Yes myalgia, Yes arthralgia Radiation: proximal, distal Severity scale (1-10): 7 Quality: sharp Consistency: intermittent Improves with: nothing Worsens with: nothing Associated Symptoms: denies other symptoms - Related Data Home Medications Medication Instructions Recorded Confirmed No Known Home Medications 07/17/24 07/17/24 Allergies Allergy/AdvReac Type Severity Reaction Status Date / Time No Known Allergies Allergy Verified 08/03/24 18:51 Review of Systems ROS Statement: Those systems with pertinent positive or pertinent negative responses have been documented in the HPI. ROS Other: All systems not noted in ROS Statement are negative. Past Medical History Past Medical History: No Reported History Additional Past Medical History / Comment(s): Aortic aneurysm, hepatitis C viral infection, history of polysubstance abuse, history of IVDA History of Any Multi-Drug Resistant Organisms: None Reported Past Surgical History: Orthopedic Surgery Additional Past Surgical History / Comment(s): Rotator cuff. Pt. states he has had "Some kind of MRSA or something multiple times over the last year" States "All over my arms,legs, everywhere Past Anesthesia/Blood Transfusion Reactions: No Reported Reaction Past Psychological History: No Psychological Hx Reported Smoking Status: Current every day smoker, Former smoker Past Alcohol Use History: Occasional Past Drug Use History: Heroin General Exam Limitations: no limitations General appearance: alert, in no apparent distress Head exam: Present: atraumatic, normocephalic, normal inspection Eye exam: Present: normal appearance, PERRL, EOMI. Absent: scleral icterus, conjunctival injection, periorbital swelling ENT exam: Present: normal exam, mucous membranes moist Neck exam: Present: normal inspection. Absent: tenderness, meningismus, lymphadenopathy Respiratory exam: Present: normal lung sounds bilaterally. Absent: respiratory distress, wheezes, rales, rhonchi, stridor Cardiovascular Exam: Present: regular rate, normal rhythm, normal heart sounds. Absent: systolic murmur, diastolic murmur, rubs, gallop, clicks GI/Abdominal exam: Present: soft, normal bowel sounds. Absent: distended, tenderness, guarding, rebound, rigid Extremities exam: Present: normal inspection, full ROM, normal capillary refill. Absent: tenderness, pedal edema, joint swelling, calf tenderness Back exam: Present: normal inspection Neurological exam: Present: alert, oriented X3, CN II-XII intact Psychiatric exam: Present: normal affect, normal mood Skin exam: Present: warm, dry, intact, normal color. Absent: rash Course Vital Signs 08/03/24 08/03/24 18:48 20:30 Temperature 97.6 F 98.9 F Pulse Rate 69 59 L Respiratory 18 18 Rate Blood Pressure 130/84 148/88 O2 Sat by Pulse 100 100 Oximetry - Reevaluation(s) Reevaluation #1: 08/03/24 19:32 Medical records reviewed Reevaluation #2: 08/03/24 19:59 Patient has adequate pain control here in the ER no neurological findings Reevaluation #3: 08/03/24 19:59 Patient informed of results and questions answered Reevaluation #4: Was pt. sent in by a medical professional or institution (, PA, PIE BOTTOMER, urgent care, hospital, or fdc...) When possible be specific @ -no Did you speak to anyone other than the patient for history (EMS, parent, family, police, friend...)? What history was obtained from this source @ -no Did you review nursing and triage notes (agree or disagree)? Why? @ -agree Are old charts reviewed (outside hosp., previous admission, EMS record, old EKG, old radiological studies, urgent care reports/EKG's, fdc records)? Report findings @ -yes Differential Diagnosis (chest pain, altered mental status, abdominal pain women, abdominal pain men, vaginal bleeding, weakness, fever, dyspnea, syncope, headache, dizziness, GI bleed, back pain, seizure, CVA, palpatations, mental health, musculoskeletal)? @ -prior EKG interpreted by me (3pts min.). @ -yes X-rays interpreted by me (1pt min.). @ -yes negative for acute disease CT interpreted by me (1pt min.). @ -no U/S interpreted by me (1pt. min.). @ -no What testing was considered but not performed or refused? (CT, X-rays, U/S, labs)? Why? @ -none What meds were considered but not given or refused? Why? @ -none Did you discuss the management of the patient with other professionals (professionals i.e. , PA, PIE BOTTOMER, lab, RT, psych nurse, sr. social media & mobile manager, energy director, teacher, air defense artillery officer, case specialist)? Give summary @ -no Was smoking cessation discussed for >3mins.? @ -no Was critical care preformed (if so, how long)? @ -no Were there social determinants of health that impacted care today? How? (Homelessness, low income, unemployed, alcoholism, drug addiction, transportation, low edu. Level, literacy, decrease access to med. care, intermediate, rehab)? @ -none Was there de-escalation of care discussed even if they declined (Discuss DNR or withdrawal of care, Hospice)? DNR status @ -no What co-morbidities impacted this encounter? (DM, HTN, Smoking, COPD, CAD, Cancer, CVA, ARF, Chemo, Hep., AIDS, mental health diagnosis, sleep apnea, morbid obesity)? @ -none Was patient admitted / discharged? Hospital course, mention meds given and route, prescriptions, significant lab abnormalities, going to OR and other pertinent info. @ - 39 male to ER with chronic left shoulder pain left arm paresthesia patient given pain control here in the ER x-ray is negative patient will be discharged home Discharge Undiagnosed new problem with uncertain prognosis? @ -no Drug Therapy requiring intensive monitoring for toxicity (Heparin, Nitro, I nsulin, Cardizem)? @ -no Were any procedures done? @ -no Diagnosis/symptom? @ -Shoulder pain chest pain Acute, or Chronic, or Acute on Chronic? @ -Acute Uncomplicated (without systemic symptoms) or Complicated (systemic symptoms)? @ -Complicated Side effects of treatment? @ -no Exacerbation, Progression, or Severe Exacerbation? @ -exacerbation Poses a threat to life or bodily function? How? (Chest pain, [place], [place], pneumonia, PE, COPD, DKA, ARF, appy, cholecystitis, CVA, Diverticulitis, Homicidal, Suicidal, threat to staff... and all critical care pts) @ -no Medical Decision Making - Medical Decision Making 39 male to ER with chronic left shoulder pain left arm paresthesia patient given pain control here in the ER x-ray is negative patient will be discharged home - Radiology Data Radiology results: report reviewed (Chest x-ray left shoulder x-ray negative for acute disease), image reviewed Disposition Clinical Impression: Left arm pain, Arm paresthesia, left Disposition: HOME SELF-CARE Condition: Good Instructions (If sedation given, give patient instructions): Paresthesia (ED), Cervical Radiculopathy (ED) Is patient prescribed a controlled substance at d/c from ED?: No Referrals: None,Stated [Primary Care Provider] - 1-2 days Time of Disposition: 20:00
[2024-08-03] MEDS: traMADol 50 MG TAB PO STA (19:42)
[2024-08-03] MEDS: KETOROLAC 15 MG/ML 1 ML VIAL IM STA (19:43)
--- NOTE | 2024-08-03 19:43 | XR ---
EXAMINATION TYPE: XR shoulder complete LT DATE OF EXAM: 08/03/2024 7:37 PM COMPARISON: Previous radiograph 03/18/2018. CLINICAL INDICATION: Male, 39 years old with history of pain; PHH, pain TECHNIQUE: XR shoulder complete LT; examined in AP, internally rotated and scapular Y projections. FINDINGS: No acute fracture or dislocation. 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 Previo us rotator cuff repair. Mild acromial clavicular degenerative osteoarthritis. Osteophyte formation [place] the medial aspect of the left humeral head. Sclerotic changes near the greater tuberosity. IMPRESSION: 1. No acute fracture or dislocation. 2. Likely previous left-sided rotator cuff repair and moderate to severe glenohumeral degenerative a rthritis. [facility], , 08/03/2024 7:41 PM
--- NOTE | 2024-08-03 19:44 | XR ---
EXAMINATION TYPE: XR chest 2V DATE OF EXAM: 08/03/2024 7:37 PM COMPARISON: Previous chest radiograph, most recently dated 01/17/2021. CLINICAL INDICATION: Male, 39 years old with history of pain; [facility] TECHNIQUE: XR chest 2V Frontal and lateral views of the chest. FINDINGS: Lungs/Pleura: There is no evidence of pleural effusion, focal consolidation, or pneumothorax. Pulmonary vascularity: Unremarkable. Heart/mediastinum: Cardiomediastinal silhouette is unremarkable. Musculoskeletal: No acute osseous pathology. Other findings: None IMPRESSION: No acute cardiopulmonary disease/process. [facility], , 08/03/2024 7:42 PM
[2024-08-03] MEDS: traMADol 50 MG STARTER PACK 3 TAB BTL PO STA (20:27)
[2024-08-03 20:32] VITALS: BP 148/88; PULSE 59; TEMP 98.9
== END 2024-08-03 20:31 | disposition home or self-care (01) ==
LOC: EC 18:45
DX: R20.2 Paresthesia of skin (principal); M79.602 Pain in left arm; R07.9 Chest pain, unspecified; F17.200 Nicotine dependence, unspecified, uncomplicated
CPT/HCPCS: 73030; 71046; 99283; 96372; J1885

== ENCOUNTER → 2024-08-23 | Outpatient (CLI) | payer OTHER ==
--- NOTE | 2024-08-25 17:28 | PE ---
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 Images are reviewed on the computer in the coronal , axial, and sagittal planes. Reconstructed rotating images are created on independent workstation a nd reviewed on the computer. A non-contrast CT is performed in conjunction with the PET scan. Gluco se level 89 mg/dL CT DLP: 1165.8 mGycm, Automated exposure control for dose reduction was used. COMPARISON: CT 05/31/2024, 01/15/2021, PET/CT None, MRI: None FINDINGS: Mediastinal SUV mean is 2.2. Hepatic parenchyma SUV mean is 2.6. SKULL BASE AND NECK: Multiple bilateral enlarged and prominent FDG avid jugular, supraclavicular, and submandibular lymph nodes demonstrated. Examples include a right posterior jugular 1.9 cm enlarged lymph node with a maxi mum SUV of 9.7 (series 4, image 58) and a right supraclavicular lymph node measuring up to 1 cm with a maximum SUV of 6.5 (series 4, image 71). Right submandibular lymph node measuring up to 2.0 cm (ser ies 4, image 69). Demonstrates a maximum SUV of 8.5. CHEST, MEDIASTINUM, AND HILAR REGION: Enlarged mediastinal lymph nodes with a prevascular space 5.4 x 2.0 cm FDG avid lymph node with a max imum SUV of 8.4. Enlarged left mammary lymph node measuring up to 1.3 cm with a maximum SUV of 3.7. Bilateral enlarged and prominent axillary lymph nodes with examples including a left axillary lymph n ode measuring 2.5 cm with a maximum SUV of 5.9. And a right axillary lymph node measuring up to 1.5 c m with a maximum SUV of 5.9. FDG avid pleural base nodularity with exams including a right lower lung 1.7 cm nodule with a maximum SUV of 5.1. Additional FDG avid scattered subcentimeter soft tissue nodules identified. ABDOMEN AND PELVIS: Multiple enlarged bilateral peritoneum, in chain, and inguinal lymph nodes that are FDG avid. Examples include a aortocaval 2.1 cm enlarged lymph node with max SUV of 4.6. Right external iliac chain lymph node measuring up to 2.3 cm with a maximum SUV of 8.1. Left external iliac chain lymph node measuring up to 2.1 cm with a maximum SUV of 5.0. Right inguinal lymph node measuring to 3.9 cm with a maximum SUV of 12.9. Right inguinal lymph node measuring up to 2.8 cm with a maximum SUV of 9.9. Left inguinal lymph node measuring up to 2.9 cm with a maximum SUV of 12.9. Left gluteal subcutaneous tissue 1.2 cm FDG avid nodule with a maximum SUV of 4.6. Additional FDG avid scattered subcentimeter soft tissue nodules identified. MUSCULOSKELETAL STRUCTURES: No suspicious radiotracer activity. OTHER CT: Bilateral gynecomastia. Surgical anchors within the bilateral scapula. Punctate nonobstruct silvia right renal calculus. IMPRESSION: Multiple FDG avid lymph nodes throughout the neck, chest, abdomen and pelvis consistent with metastat ic disease. Additional scattered FDG avid metastatic soft tissue nodules and pleural nodules. [facility], , 08/25/2024 5:26 PM
== END | disposition home or self-care (01) ==
LOC: RADPETMAIN 12:52
PROVIDERS: ATTEND Internal Medicine Hematology & Oncology
DX: C46 Kaposi's sarcoma (principal); R91.8 Other nonspecific abnormal finding of lung field; R59.9 Enlarged lymph nodes, unspecified
CPT/HCPCS: 78815; A9552